=== PATIENT | male | born 1955 | race Caucasian/White ===

== ENCOUNTER 2016-06-03 11:36 | Emergency (ER) | payer BC, OTHER ==
[~2016-06-03] VITALS: Ht 175.3 cm; Wt 115.5 kg
[2016-06-03 11:45] VITALS: Ht 175.3 cm; Wt 115.5 kg
[2016-06-03] MEDS ORDERED: KETOROLAC 30 MG INJ IM STA (14:16)
[2016-06-03] MEDS ORDERED: IBUP400T22 PO (14:28)
--- NOTE | 2016-06-03 15:13 | ERD ---
ER Documentation Chief Complaint Date/Time DATE: 06/03/16 TIME: 15:10 Chief Complaint LEFT LEG PAIN 03/06 X 3DAYS HPI 60-year-old male with a past medical history of diabetes, hypertension presents the ED complaining of left leg pain that started 3 days ago. States that he had one episode a couple of months ago and has been applying patches which slightly relieved his symptoms. States that laying down and sitting makes the pain worse. States that the pain derives from his left side of the buttocks and radiates down his leg. Denies any saddle anesthesia, urine or bowel incontinence, abdominal pain, nausea, vomiting, dysuria, scrotal pain, urgency, frequency. Denies any calf pain. Denies any recent traveling. Denies any shortness of breath, chest pain, pleuritic chest pain, dyspnea on exertion, loss of sensation, loss of range of motion. ROS All systems reviewed and are negative except as per history of present illness. Medications Home Meds Active Scripts Ibuprofen* (Motrin*) 400 Mg Tab, 400 MG PO Q6, #30 TAB Prov:GREGORY URENA PA-C 06/03/16 PMhx/Soc History of Surgery: No Anesthesia Reaction: No Hx Neurological Disorder: No Hx Respiratory Disorders: No Hx Cardiac Disorders: Yes (HTN) Hx Psychiatric Problems: No Hx Miscellaneous Medical Probl: Yes (DM) Hx Alcohol Use: Yes (SOCIALLY) Hx Substance Use: No Hx Tobacco Use: Yes Smoking Status: Former smoker Physical Exam Vitals Vital Signs Date Time Temp Pulse Resp B/P Pulse Ox O2 Delivery O2 Flow Rate FiO2 06/03/16 11:45 98.4 83 18 149/91 98 Physical Exam Const: [id number], well-nourished. In no acute distress. Head: Atraumatic, normocephalic Eyes: Normal Conjunctiva without injection. No purulent discharge. ENT: Normal external ear, nose. Moist oropharynx without tonsillar exudates. Non -erythematous pharynx. Uvula midline. No drooling. No trismus. Neck: No cervical midline tenderness. Full range of motion. No meningismus. No cervical lymphadenopathy. No JVD. Resp: Clear to auscultation bilaterally. No wheezing, rhonchi, rales, or crackles. No accessory muscle use. No retractions. Cardio: Regular rate and rhythm. No murmurs, rubs or gallops. Abd: Soft, nontender, non distended. Normal bowel sounds. No palpable masses. No rebound tenderness. No guarding. Negative McBurney's point. Negative psoas sign. Negative obturator sign. Skin: No petechiae or rashes Back: No midline tenderness. Full range of motion noted. Positive straight leg test noted. No CVA tenderness. Ext: No cyanosis, or edema. Neur: Awake and alert. Normal gait. Normal coordination. Psych: Normal Mood and Affect Results 24 hrs Current Medications Medications (Trade) Dose Ordered Sig/Dwight Route PRN Reason Start Time Stop Time Status Last Admin Dose Admin Ketorolac Tromethamine (Toradol) 30 mg ONCE STAT IM 06/03/16 14:16 06/03/16 14:21 DC 06/03/16 14:34 Procedures/MDM This is a 60-year-old male with a past medical history of hypertension, diabetes presents to the ED complaining of left leg pain that started 3 days ago. Patient is afebrile nontoxic appearing. Patient has normal vital signs. Based on patient's clinical exam, patient had a positive straight leg test noted. Patient likely has possible sciatica of the left leg. Patient did not have any bony tenderness. Patient was treated here in the ED with 30 mg IM Toradol with improvement of his pain. No indication for radiologic studies at this time since patient does not have any bony tenderness. Patient is ambulating here in the ED without difficulty. Denies saddle anesthesia, numbness or tingling, urine or bowel incontinence, weakness. Low suspicion for cauda equina syndrome, cord compression, nephrolithiasis, aortic aneurysm, aortic dissection, epidural abscess, spinal hematoma, malignancy, pyelonephritis , degenerative disc disease, spinal stenosis, or other emergent conditions. Patient's extremity symptoms have stabilized while they have been evaluated in the department and are appropriate for outpatient follow up. No evidence of fractures, dislocations, compartment syndrome, neurologic injury, vascular injury, open joint, open fracture, tendon laceration, septic arthritis, osteomyelitis, DVT, foreign body, or other emergent conditions. Discharge medications: Ibuprofen Follow up with primary care physician in 1-2 days. Instructed patient to return to the ED sooner for any worsening symptoms. Patient's questions were answered. Patient understood and agreed with discharge plan. Patient discharged stable. Departure Diagnosis: Primary Impression: Sciatic leg pain Condition: Stable Patient Instructions: Understanding Sciatica, Back Pain W/ Sciatica Referrals: [facility] YOU HAVE RECEIVED A MEDICAL SCREENING EXAM AND THE RESULTS INDICATE THAT YOU DO NOT HAVE A CONDITION THAT REQUIRES URGENT TREATMENT IN THE EMERGENCY DEPARTMENT. FURTHER EVALUATION AND TREATMENT OF YOUR CONDITION CAN WAIT UNTIL YOU ARE SEEN IN YOUR DOCTORS OFFICE WITHIN THE NEXT 1-2 DAYS. IT IS YOUR RESPONSIBILITY TO MAKE AN APPOINTMENT FOR FOLOW-UP CARE. IF YOU HAVE A PRIMARY DOCTOR --you should call your primary doctor and schedule an appointment IF YOU DO NOT HAVE A PRIMARY DOCTOR YOU CAN CALL OUR PHYSICIAN REFERRAL HOTLINE AT IF YOU CAN NOT AFFORD TO SEE A PHYSICIAN YOU CAN CHOSE FROM THE FOLLOWING [facility] [address] [facility] [address] [facility] [facility] [address] [facility] [address] [facility] [address] [facility]. [facility] [address] [facility]. [facility] YOU HAVE RECEIVED A MEDICAL SCREENING EXAM AND THE RESULTS INDICATE THAT YOU DO NOT HAVE A CONDITION THAT REQUIRES URGENT TREATMENT IN THE EMERGENCY DEPARTMENT. FURTHER EVALUATION AND TREATMENT OF YOUR CONDITION CAN WAIT UNTIL YOU ARE SEEN IN YOUR DOCTORS OFFICE WITHIN THE NEXT 1-2 DAYS. IT IS YOUR RESPONSIBILITY TO MAKE AN APPOINTMENT FOR FOLOW-UP CARE. IF YOU HAVE A PRIMARY DOCTOR --you should call your primary doctor and schedule and appointment IF YOU DO NOT HAVE A PRIMARY DOCTOR YOU CAN CALL OUR PHYSICIAN REFERRAL HOTLINE AT . IF YOU CAN NOT AFFORD TO SEE A PHYSICIAN YOU CAN CHOSE FROM THE FOLLOWING [facility] INSTITUTIONS: [facility] [address] [place] [address] [facility] [address] [place] [address] [facility] + [facility] [address] [place] [address] [facility] URGENT C[facility]/SPECIALTIES Additional Instructions: FOLLOW UP WITH YOUR PRIMARY CARE PHYSICIAN TOMORROW. Return to this facility if you are not improving as expected. GREGORY URENA PA-C Jun 03, 2016 15:13
== END 2016-06-03 14:40 | disposition home or self-care (01) ==
LOC: FTE 11:36
DX: M54.32 Sciatica, left side (principal); I10 Essential (primary) hypertension; E11.9 Type 2 diabetes mellitus without complications; Z87.891 Personal history of nicotine dependence
CPT/HCPCS: 96372; 99284; J1885

== ENCOUNTER 2016-11-22 07:35 | Emergency (ER) | payer OTHER ==
[~2016-11-22] VITALS: Wt 122.5 kg
[~2016-11-22 07:35] MED LIST: IBUP400T22 PO
[2016-11-22 08:25] LABS: ADD SCAN DIFF NO
[2016-11-22 08:34] LABS: BASOPHILS % 0.7 % (0.0-2.0); EOSINOPHILS # 0.1 10^3/ul (0.0-0.5); EOSINOPHILS % 2.2 % (0.0-7.0); HEMATOCRIT 40.2 % (42.0-52.0); HEMOGLOBIN 13.1 g/dl (14.0-18.0); LYMPHOCYTES # 1.6 10^3/ul (0.8-2.9); LYMPHOCYTES % 26.8 % (15.0-51.0); MEAN CORPUSCULAR HEMOGLOBIN 27.5 pg (29.0-33.0); MEAN CORPUSCULAR HGB CONC 32.6 g/dl (32.0-37.0); MEAN CORPUSCULAR VOLUME 84.5 fl (82.0-101.0); MONOCYTE # 0.5 10^3/ul (0.3-0.9); NEUTROPHIL # 3.6 10^3/ul (1.6-7.5); PLATELET COUNT 179 10^3/UL (140-415); RED BLOOD COUNT 4.76 10^6/ul (4.70-6.10); RED CELL DISTRIBUTION WIDTH 14.6 % (11.5-14.5); WHITE BLOOD COUNT 5.9 10^3/ul (4.8-10.8)
[2016-11-22 08:40] LABS: ADD UMIC YES; UR ASCORBIC ACID NEGATIVE (NEGATIVE); UR BILIRUBIN (Dip) NEGATIVE (NEGATIVE); UR BLOOD (Dip) NEGATIVE (NEGATIVE); UR CLARITY CLEAR (CLEAR); UR COLOR YELLOW (YELLOW); UR GLUCOSE (Dip) NEGATIVE (NEGATIVE); UR KETONES (Dip) NEGATIVE (NEGATIVE); UR LEUKOCYTE ESTERASE (Dip) TRACE Leu/ul (NEGATIVE); UR NITRITE (Dip) NEGATIVE (NEGATIVE); UR RBC 1 /HPF (0-5); UR SPECIFIC GRAVITY (Dip) 1.011 (1.003-1.030); UR TOTAL PROTEIN (Dip) NEGATIVE (NEGATIVE); UR UROBILINOGEN (Dip) NEGATIVE (NEGATIVE)
[2016-11-22 08:50] LABS: ALBUMIN 4.5 g/dl (3.3-4.9); ALBUMIN/GLOBULIN RATIO 1.5; BILIRUBIN,INDIRECT 0.6 mg/dl (0-1.1); BILIRUBIN,TOTAL 0.6 mg/dl (0.2-1.3); CALCIUM 9.1 mg/dl (8.4-10.2); CREATININE 1.02 mg/dl (0.61-1.24); POTASSIUM 3.2 mmol/L (3.5-5.1); TOTAL PROTEIN 7.5 g/dl (6.1-8.1)
--- NOTE | 2016-11-22 08:55 | RADRPT ---
PROCEDURE: CT Brain without contrast. CLINICAL INDICATION: left facial droop TECHNIQUE: CT scan of the brain was performed on a multidetector high-resolution CT scan. Axial im aging was obtained of the brain without contrast administration. Coronal and sagittal reformatted i mages were obtained from the axial source images. Standard CT scan of the head without contrast prot ocols were performed. The total exam CTDI equals 43.95 mGy and the total exam DLP equals 720.23 mGy-cm. One or more of the following dose reduction techniques were used: - Automated exposure control. - Adjustment of the mA and/or kV according to patient size. Use of iterative reconstruction technique. COMPARISON: None. FINDINGS: The ventricular system and peripheral CSF spaces are unremarkable. Negative for intracranial masses hemorrhages or midline shift. Milton-white matter junction is unremarkable. The paranasal sinuses v isualized are unremarkable. The mastoids are unremarkable. The bones and calvarium are intact. IMPRESSION: Negative CT scan of the head without contrast. RPTAT:AAJJ Physician Silvino Date Time Electronically viewed and signed by Physician Silvino on 11/22/2016 08:54 BM/
[2016-11-22] MEDS ORDERED: POTASSIUM CHLORIDE (SR) 20 MEQ TAB PO STA (08:56)
--- NOTE | 2016-11-22 09:03 | RADRPT ---
PROCEDURE: XR Chest. CLINICAL INDICATION: Abdominal pain. TECHNIQUE: Single frontal portable chest was obtained. COMPARISON: None. FINDINGS: The cardiac silhouette is mildly enlarged. Pulmonary vasculature is upper limit normal. There is b ibasilar subsegmental atelectasis. No confluent airspace process is seen. The costophrenic angles are well defined. IMPRESSION: 1. Borderline cardiomegaly. 2. Bibasilar subsegmental atelectasis. 3. No confluent airspace process identified. RPTAT: AACC Physician Celsa Date Time Electronically viewed and signed by Physician Celsa on 11/22/2016 09:03 /
--- NOTE | 2016-11-22 09:09 | ERD ---
ER Documentation Chief Complaint Date/Time DATE: 11/22/16 TIME: 09:05 Chief Complaint l. sided facial numbness with droop noticed while brushing teeth at 0630 HPI This is a 61-year-old male who presents to the emergency room for evaluation of left-sided facial weakness and numbness that the patient noticed this morning when he woke up and started brushing his teeth around 630. The patient denies any numbness or tingling or weakness anywhere else in his body, and came to the emergency room for further evaluation. The patient denies having symptoms like this in the past and states that he is not having any blurred vision or headaches associated with this. ROS All systems reviewed and are negative except as per history of present illness. Medications Home Meds Active Scripts Ibuprofen* (Motrin*) 400 Mg Tab, 400 MG PO Q6, #30 TAB Prov:GREGORY URENA PA-C 06/03/16 PMhx/Soc History of Surgery: No Anesthesia Reaction: No Hx Neurological Disorder: No Hx Respiratory Disorders: No Hx Cardiac Disorders: Yes (HTN) Hx Psychiatric Problems: No Hx Miscellaneous Medical Probl: Yes (DM) Hx Alcohol Use: Yes (SOCIALLY) Hx Substance Use: No Hx Tobacco Use: Yes Smoking Status: Former smoker Physical Exam Vitals Vital Signs Date Time Temp Pulse Resp B/P Pulse Ox O2 Delivery O2 Flow Rate FiO2 11/22/16 08:01 97.6 66 18 126/73 97 Room Air 11/22/16 07:40 97.6 72 20 130/71 95 Physical Exam INITIAL VITAL SIGNS: Reviewed by me GENERAL: The patient is well developed and appropriate for usual state of health in no apparent distress HEENT: Pupils equal, round, and reactive to light. EOMI. There is no scleral icterus. NECK: C-spine is soft and supple, there is no meningismus. There is no cervical lymphadenopathy. LUNGS: Clear to auscultation bilaterally. There are no rales, wheezes or rhonchi. HEART: Regular rate and rhythm, no murmurs, clicks, rubs or gallops. ABDOMEN: Soft, non-tender, non-distended. There are bowel sounds in all four quadrants. No rebound or guarding. EXTREMITIES: There is no peripheral cyanosis or edema. No focal swelling or erythema. NEUROLOGICAL: Left-sided facial droop, inability to lift left eyebrow, the patient moves all four extremities with 5/5 strength. Oriented to person place and time SKIN: There is no apparent rash or petechiae. HEME/LYMPHATIC: There is no evidence of excessive bruising or lymphedema. PSYCHIATRIC: The patient does not appear anxious or depressed. Result Diagram: 11/22/16 0823 11/22/16 0823 Results 24 hrs Laboratory Tests Test 11/22/16 08:23 11/22/16 08:25 White Blood Count 5.910^3/ul Red Blood Count 4.7610^6/ul Hemoglobin 13.1g/dl Hematocrit 40.2% Mean Corpuscular Volume 84.5fl Mean Corpuscular Hemoglobin 27.5pg Mean Corpuscular Hemoglobin Concent 32.6g/dl Red Cell Distribution Width 14.6% Platelet Count 51794^3/UL Mean Platelet Volume 12.0fl Neutrophils % 62.0% Lymphocytes % 26.8% Monocytes % 8.0% Eosinophils % 2.2% Basophils % 0.7% Nucleated Red Blood Cells % 0.0/100WBC Neutrophils # 3.610^3/ul Lymphocytes # 1.610^3/ul Monocytes # 0.510^3/ul Eosinophils # 0.110^3/ul Basophils # 0.010^3/ul Nucleated Red Blood Cells # 0.010^3/ul Sodium Level 148mmol/L Potassium Level 3.2mmol/L Chloride Level 103mmol/L Carbon Dioxide Level 32mmol/L Anion Gap 16 Blood Urea Nitrogen 14mg/dl Creatinine 1.02mg/dl Glucose Level 136mg/dl Calcium Level 9.1mg/dl Total Bilirubin 0.6mg/dl Direct Bilirubin 0.00mg/dl Indirect Bilirubin 0.6mg/dl Aspartate Amino Transf (AST/SGOT) 31IU/L Alanine Aminotransferase (ALT/SGPT) 51IU/L Alkaline Phosphatase 58IU/L Total Protein 7.5g/dl Albumin 4.5g/dl Globulin 3.00g/dl Albumin/Globulin Ratio 1.50 Lipase 80U/L Urine Color YELLOW Urine Clarity CLEAR Urine pH 7.0 Urine Specific [place] 1.011 Urine Ketones NEGATIVEmg/dL Urine Nitrite NEGATIVEmg/dL Urine Bilirubin NEGATIVEmg/dL Urine Urobilinogen NEGATIVEmg/dL Urine Leukocyte Esterase TRACELeu/ul Urine Microscopic RBC 1/HPF Urine Microscopic WBC 1/HPF Urine Hemoglobin NEGATIVEmg/dL Urine Glucose NEGATIVEmg/dL Urine Total Protein NEGATIVEmg/dl Current Medications Medications (Trade) Dose Ordered Sig/Dwight Route PRN Reason Start Time Stop Time Status Last Admin Dose Admin Potassium Chloride (Klor-Con 20) 40 meq ONCE STAT PO 11/22/16 08:56 11/22/16 08:57 UNV Acyclovir (Zovirax) 800 mg ONCE ONCE PO 11/22/16 09:30 11/22/16 09:31 Prednisone (Prednisone) 40 mg ONCE ONCE PO 11/22/16 09:30 11/22/16 09:31 Procedures/MDM CT brain without: Negative CT scan of the head without contrast. EKG: Rate/Rhythm: [Normal Sinus Rhythm] QRS, ST, T-waves: [No changes consistent w/ acute ischemia] Impression: [No evidence of ischemia or arrhythmia] Chest X-ray 1V Interpreted by me: Soft Tissue: No acute abnormalities Bones: No acute abnormalities Mediastinum/Cardiac Silhouette/Lungs: [No acute abnormalities] This 61-year-old male presents to the emergency room for evaluation of left sided facial weakness and facial droop. On my examination the patient did have left-sided facial droop however he had no other focal neurological deficits. The patient was unable to raise his left eyebrow. This patient had a CT of the brain which was negative. I do feel that the patient he is suffering from Patiño 's palsy. Patient was found to have hypokalemia with potassium 3.2. He was given 40 mg once a potassium by mouth. The patient was given acyclovir and prednisone in the emergency room. He will be discharged home at this time with a prescription for valacyclovir, prednisone, and eye lubrication with instructions to follow-up with his primary care physician or return to the emergency room for further evaluation. Smoking Cessation Therapy: Pt. was lectured for greater than 3 minutes on the health risks of continued smoking and the benefits of cessation. Departure Diagnosis: Primary Impression: Left-sided Patiño's palsy Additional Impressions: Hypokalemia Normocytic anemia Tobacco abuse Tobacco abuse counseling Condition: Stable KALIE PALENCIA DO Nov 22, 2016 09:09
[2016-11-22] MEDS ORDERED: PRED20TA PO (09:10)
[2016-11-22] MEDS ORDERED: VALA10004 PO (09:10)
[2016-11-22] MEDS ORDERED: [UNRECOGNIZED DRUG - CODE] OP (09:11)
[2016-11-22] MEDS ORDERED: [UNRECOGNIZED DRUG - CODE] PO (09:23)
[2016-11-22] MEDS ORDERED: ACYCLOVIR 800 MG TAB PO ONE (09:30)
[2016-11-22] MEDS ORDERED: predniSONE 20 MG TAB PO ONE (09:30)
[2016-11-22 09:59] VITALS: BP 151/88; PULSE 72; RESP 16; TEMP 97.6
== END 2016-11-22 10:00 | disposition home or self-care (01) ==
LOC: E/R 07:35
DX: G51.0 Bell's palsy (principal); E87.6 Hypokalemia; D64.9 Anemia, unspecified; F17.210 Nicotine dependence, cigarettes, uncomplicated; I10 Essential (primary) hypertension; E11.9 Type 2 diabetes mellitus without complications; Z71.6 Tobacco abuse counseling
CPT/HCPCS: 36415; 70450; 71010; 80053; 81001; 83690; 85025; 93005; 99285; J7512

== ENCOUNTER 2017-01-29 17:02 | Inpatient (IN) | payer OTHER ==
[~2017-01-29] VITALS: Ht 172.7 cm; Wt 105.0 kg
[~2017-01-29 17:02] MED LIST changes: -IBUP400T22 PO; +PRED20TA PO; +VALA10004 PO; +[UNRECOGNIZED DRUG - CODE] OP; +[UNRECOGNIZED DRUG - CODE] PO
[2017-01-29 17:05] VITALS: Ht 172.7 cm; Wt 105.0 kg
[2017-01-29 19:40] VITALS: TEMP 98.4
[2017-01-29] MEDS ORDERED: SODIUM CHLORIDE 0.9% 1L BAG IV* STA (19:51)
[2017-01-29] MEDS ORDERED: ACETAMINOPHEN 325 MG TAB PO STA (19:51)
[2017-01-29] MEDS ORDERED: VANCOMYCIN 1 GM (PMX) 250 ML IVPB ONE (20:00)
[2017-01-29] MEDS ORDERED: PIPER-TAZO 3.375 GM IV (PMX) 100 ML IVPB ONE (20:00)
[2017-01-29 20:14] LABS: BASOPHILS % 0.3 % (0.0-2.0); EOSINOPHILS # 0.1 10^3/ul (0.0-0.5); EOSINOPHILS % 1.3 % (0.0-7.0); HEMATOCRIT 37.9 % (42.0-52.0); LYMPHOCYTES % 19.3 % (15.0-51.0); MEAN CORPUSCULAR HEMOGLOBIN 28.7 pg (29.0-33.0); MEAN CORPUSCULAR HGB CONC 34.3 g/dl (32.0-37.0); MEAN CORPUSCULAR VOLUME 83.7 fl (82.0-101.0); MONOCYTE # 0.8 10^3/ul (0.3-0.9); MONOCYTES % 7.8 % (0.0-11.0); NEUTROPHILS % 70.8 % (39.0-77.0); PLATELET COUNT 193 10^3/UL (140-415); RED BLOOD COUNT 4.53 10^6/ul (4.70-6.10); RED CELL DISTRIBUTION WIDTH 14.7 % (11.5-14.5); WHITE BLOOD COUNT 10.1 10^3/ul (4.8-10.8)
[2017-01-29 20:31] LABS: INR 0.91; PROTIME 12.3 Sec (12.2-14.2)
[2017-01-29 20:32] LABS: PARTIAL THROMBOPLASTIN TIME 30.3 Sec (25.0-35.0)
[2017-01-29 20:34] LABS: ALBUMIN 3.9 g/dl (3.3-4.9); ALBUMIN/GLOBULIN RATIO 1.18; BILIRUBIN,INDIRECT 0.4 mg/dl (0-1.1); BILIRUBIN,TOTAL 0.4 mg/dl (0.2-1.3); CALCIUM 9.9 mg/dl (8.4-10.2); CREATININE 1.32 mg/dl (0.61-1.24); TOTAL PROTEIN 7.2 g/dl (6.1-8.1)
[2017-01-29 20:36] LABS: POTASSIUM 2.4 mmol/L (3.5-5.1)
[2017-01-29 20:46] LABS: TROPONIN-I 0.024 ng/ml (0.00-0.12)
[2017-01-29 20:53] LABS: ADD UMIC YES; UR ASCORBIC ACID NEGATIVE (NEGATIVE); UR BACTERIA FEW /HPF (NONE SEEN); UR BILIRUBIN (Dip) NEGATIVE (NEGATIVE); UR BLOOD (Dip) 1+ mg/dL (NEGATIVE); UR CLARITY SLIGHTLY CLOUDY (CLEAR); UR COLOR YELLOW (YELLOW); UR GLUCOSE (Dip) NEGATIVE (NEGATIVE); UR KETONES (Dip) NEGATIVE (NEGATIVE); UR LEUKOCYTE ESTERASE (Dip) NEGATIVE Leu/ul (NEGATIVE); UR NITRITE (Dip) NEGATIVE (NEGATIVE); UR RBC 1 /HPF (0-5); UR SPECIFIC GRAVITY (Dip) 1.014 (1.003-1.030); UR TOTAL PROTEIN (Dip) NEGATIVE (NEGATIVE); UR UROBILINOGEN (Dip) NEGATIVE (NEGATIVE)
[2017-01-29] MEDS ORDERED: ACETAMINOPHEN 325 MG TAB PO PRN (21:00)
[2017-01-29] MEDS ORDERED: SOD CHLORIDE 0.9% 1,000 ML IV ONE (21:00)
[2017-01-29] MEDS ORDERED: ONDANSETRON 4 MG INJ IV PRN (21:00)
--- NOTE | 2017-01-29 21:15 | RADRPT ---
PROCEDURE: Portable chest x-ray. CLINICAL INDICATION: 61 years of age, male. Chest pain. TECHNIQUE: Portable AP view of the chest. COMPARISON: None available. FINDINGS: Right paratracheal soft tissue prominence at the thoracic inlet is unchanged from prior exam and may be due to an enlarged thyroid gland or prominent vasculature. Cardiomediastinal contours are other cavazos normal. Lungs are clear. Negative for pleural effusion or pneumothorax. No acute bony abnormality. IMPRESSION: Right paratracheal soft tissue prominence is unchanged from prior exam and may be due to an enlarged thyroid gland or tortuous vessels. Recommend clinical evaluation of the thyroid. The patient may b enefit from non-urgent thyroid ultrasound. Negative for evidence of an acute chest process. RPTAT: HCTS Physician Regina Date Time Electronically viewed and signed by Physician Regina on 01/29/2017 21:15 /
--- NOTE | 2017-01-29 21:21 | ERA ---
ER Documentation Chief Complaint Date/Time DATE: 01/29/17 TIME: 21:10 Chief Complaint SQUAMOS CELL CARCINOMA WITH REMOVAL SUNDAY. NOW FEVER AND PAIN ROS All systems reviewed and are negative except as per history of present illness. Medications Home Meds Active Scripts Dextran/Hypromellose/Glycerin (Tears Naturale Forte Drops) 30 Ml Drops, 30 ML OP QID for 7 Days, BOTTLE Prov:CHEIKH PALENCIATUCKER JAMES 11/22/16 Prednisone* (Prednisone*) 20 Mg Tab, 60 MG PO DAILY for 4 Days, TAB Prov:KALIE PALENCIA DO 11/22/16 Valacyclovir HCl (Valtrex) 1,000 Mg Tablet, 1000 MG PO TID for 7 Days, TAB Prov:KALIE PALENCIA DO 11/22/16 Reported Medications Amlodipine-Atorvastatin (Amlodipine-Atorvastatin) 10-40 Mg Tablet, 1 TAB PO QHS , #90 11/22/16 Allergies Allergies: Coded Allergies: No Known Allergy (Unverified , 11/22/16) PMhx/Soc History of Surgery: No Anesthesia Reaction: No Hx Neurological Disorder: No Hx Respiratory Disorders: No Hx Cardiac Disorders: Yes (HTN) Hx Psychiatric Problems: No Hx Miscellaneous Medical Probl: Yes (DM, Patiño's Palsy, HTN, BPH) Hx Alcohol Use: Yes (SOCIALLY) Hx Substance Use: No Hx Tobacco Use: Yes (STOPPED 20 YEARS AGO) Smoking Status: Former smoker FmHx Family History: No diabetes Physical Exam Vitals Vital Signs Date Time Temp Pulse Resp B/P Pulse Ox O2 Delivery O2 Flow Rate FiO2 01/29/17 19:40 98.4 68 20 126/71 99 Room Air 2.0 Nasal Cannula 01/29/17 17:05 98.1 82 20 143/73 96 Physical Exam GENERAL: Well-developed, well-nourished, well-hydrated, in no apparent distress , looks nontoxic in appearance, febrile HEENT: Moist mucous membranes, pink conjunctiva, no cervical spine tenderness or step-off deformities, no goiter, no jaundice or icterus, extraocular movements intact without pain. No submandibular induration, and no pharyngeal erythema NEURO: Alert and oriented 3, cranial nerves II through XII intact bilaterally, pupils equal round reactive to light, no focal deficits or facial asymmetry, sensation intact distally Strength 5/5 in upper and lower extremities bilaterally CARDIAC: Regular rate and rhythm, no murmurs rubs or gallops LUNGS: Clear bilaterally no wheezing crackles or stridor ABDOMEN: Soft nontender, no guarding, no rigidity, no rebound, no psoas sign no obturator sign. Normoactive bowel sounds SKIN: Large zone of skin erythema and induration to the right lateral thigh evidence of recent surgical removal, no purulent discharge or drainage. EXTREMITIES: No clubbing cyanosis or edema, calves are bilaterally symmetrical, no Homans sign, no popliteal cord sign. Distal pulses equal and bilateral PSYCH: Normal affect without agitation or irritability Result Diagram: 01/29/17200401/29/172004 Results 24 hrs Laboratory Tests Test 01/29/17 20:00 01/29/17 20:05 Urine Color YELLOW Urine Clarity SLIGHTLY CLOUDY Urine pH 6.0 Urine Specific [place] 1.014 Urine Ketones NEGATIVEmg/dL Urine Nitrite NEGATIVEmg/dL Urine Bilirubin NEGATIVEmg/dL Urine Urobilinogen NEGATIVEmg/dL Urine Leukocyte Esterase NEGATIVELeu/ul Urine Microscopic RBC 1/HPF Urine Microscopic WBC 4/HPF Urine Bacteria FEW/HPF Urine Hemoglobin 1+mg/dL Urine Glucose NEGATIVEmg/dL Urine Total Protein NEGATIVEmg/dl White Blood Count 10.110^3/ul Red Blood Count 4.5310^6/ul Hemoglobin 13.0g/dl Hematocrit 37.9% Mean Corpuscular Volume 83.7fl Mean Corpuscular Hemoglobin 28.7pg Mean Corpuscular Hemoglobin Concent 34.3g/dl Red Cell Distribution Width 14.7% Platelet Count 37991^3/UL Mean Platelet Volume 12.0fl Neutrophils % 70.8% Lymphocytes % 19.3% Monocytes % 7.8% Eosinophils % 1.3% Basophils % 0.3% Nucleated Red Blood Cells % 0.0/100WBC Neutrophils # (Manual) 7.210^3/ul Lymphocytes # 2.010^3/ul Monocytes # 0.810^3/ul Eosinophils # 0.110^3/ul Basophils # 0.010^3/ul Nucleated Red Blood Cells # 0.010^3/ul Prothrombin Time 12.3Sec Prothrombin Time Ratio 1.0 INR International Normalized Ratio 0.91 Activated Partial Thromboplast Time 30.3Sec Sodium Level 141mmol/L Potassium Level 2.4mmol/L Chloride Level 96mmol/L Carbon Dioxide Level 35mmol/L Anion Gap 12 Blood Urea Nitrogen 27mg/dl Creatinine 1.32mg/dl Glucose Level 161mg/dl Lactic Acid Level 2.4mmol/L Calcium Level 9.9mg/dl Total Bilirubin 0.4mg/dl Direct Bilirubin 0.00mg/dl Indirect Bilirubin 0.4mg/dl Aspartate Amino Transf (AST/SGOT) 21IU/L Alanine Aminotransferase (ALT/SGPT) 37IU/L Alkaline Phosphatase 56IU/L Troponin I 0.024ng/ml Total Protein 7.2g/dl Albumin 3.9g/dl Globulin 3.30g/dl Albumin/Globulin Ratio 1.18 Lipase 98U/L Current Medications Medications (Trade) Dose Ordered Sig/Dwight Route PRN Reason Start Time Stop Time Status Last Admin Dose Admin Sodium Chloride (NS) 2,000 ml BOLUS OVER 2 HOURS STAT IV* 01/29/17 19:51 01/29/17 19:52 DC 01/29/17 20:15 Acetaminophen 650 mg 650 mg ONCE STAT PO 01/29/17 19:51 01/29/17 19:52 DC 01/29/17 20:14 Vancomycin HCl 250 ml @ 125 mls/hr ONCE ONCE IVPB 01/29/17 20:00 01/29/17 21:59 01/29/17 21:03 Piperacillin Sod/ Tazobactam Sod (Zosyn 3.375gm/ 100 ml (Pmx)) 100 ml @ 200 mls/hr ONCE ONCE IVPB 01/29/17 20:00 01/29/17 20:29 DC 01/29/17 20:14 Ondansetron HCl (Zofran Inj) 4 mg BRIDGE ORDER PRN IV NAUSEA AND/OR VOMITING 01/29/17 21:00 01/30/17 20:59 Acetaminophen 650 mg 650 mg ER BRIDGE PRN PO MILD PAIN/FEVER 01/29/17 21:00 01/30/17 20:59 Potassium Phosphate 40 meq/ Sodium Chloride 259.0909 ml @ 64.773 m... ONCE ONCE IVPB 01/29/17 21:30 01/30/17 01:29 Sodium Chloride (NS) 1,000 ml @ 1,000 mls/hr Q1H ONCE IV 01/29/17 21:00 01/29/17 21:59 Procedures/MDM IV line was established patient was placed on fish grader rhythm strip revealed a sinus rhythm at about 70 bpm with upright P and T waves. Patient was afebrile. I do not suspect sepsis. Although blood and urine cultures have been ordered results are pending I will follow-up. I administered 2 L normal saline intravenously, Zosyn 3.375 g IV and vancomycin 1 g IV.Patient also received acetaminophen 650 mg p.o. EKG performed, read by me revealed a normal sinus rhythm at 65 bpm, normal axis on the right ventricular conduction delay at 100 ms, no concerning ST elevations or depressions noted. One AP view of the chest performed, read by me reveals no acute infiltrates, normal mediastinum, sharp costophrenic and cardiac borders, no air under the diaphragm. Otherwise unremarkable chest x-ray. CBC was unremarkable, electrolytes revealed dehydration with a BUN/creatinine of 27/1.3 and hypokalemia 2.4.Liver function tests are unremarkable, troponin negative, urine analysis unremarkable. I supplemented the patient with intravenous potassium for acute hypokalemia. I do not suspect sepsis although patient will be admitted for IV antibiotics given the recent thigh cellulitis which failed outpatient antibiotic therapy. Departure Diagnosis: Primary Impression: Squamous cell carcinoma Additional Impressions: Cellulitis Qualified Code: L03.115 - Cellulitis of right lower extremity Hypokalemia Dehydration Condition: ABDOUL Couch MD Jan 29, 2017 21:20
[2017-01-29] MEDS ORDERED: POTASSIUM PHOSPHATE 40 MEQ in SOD CHLORIDE 0.9% 250 ML IVPB ONE (21:30)
[2017-01-29 22:20] VITALS: BP 146/70; RESP 18
[2017-01-29] MEDS ORDERED: [UNRECOGNIZED DRUG - OTHER] (22:25)
[2017-01-29] MEDS ORDERED: METF1000 PO (22:26)
[2017-01-29] MEDS ORDERED: LOSA100T7 PO (22:27)
[2017-01-29] MEDS ORDERED: METO-336 PO (22:28)
[2017-01-29] MEDS ORDERED: HYDR25TA6 PO (22:29)
[2017-01-29] MEDS ORDERED: TAMS0.4C2 PO (22:31)
[2017-01-30] MEDS ORDERED: [UNRECOGNIZED DRUG - OTHER] SCH (00:30)
[2017-01-30] MEDS ORDERED: VANCOMYCIN IV PER PHARMACY XX SCH (00:30)
[2017-01-30] MEDS ORDERED: TAMSULOSIN (SR) 0.4 MG CAP PO ONE (00:36)
[2017-01-30] MEDS: TAMSULOSIN (SR) 0.4 MG CAP PO SCH ×2 (00:39→20:37)
[2017-01-30] MEDS: metFORMIN 500 MG TAB PO SCH ×3 (00:39→17:24)
[2017-01-30] MEDS ORDERED: VANCOMYCIN 2 GM in SOD CHLORIDE 0.9% 500 ML IVPB SCH (02:00)
[2017-01-30 02:04] VITALS: BP 129/60; RESP 18
[2017-01-30] MEDS ORDERED: POTASSIUM CHLORIDE 50 ML IVPB PRN (05:30)
[2017-01-30] MEDS: PIPER-TAZO 3.375 GM IV (PMX) 100 ML IVPB SCH ×3 (06:10→22:50)
[2017-01-30] MEDS: PANTOPRAZOLE (EC) 40 MG TAB PO SCH (06:10)
[2017-01-30 06:37] LABS: BASOPHILS % 0.4 % (0.0-2.0); EOSINOPHILS # 0.1 10^3/ul (0.0-0.5); EOSINOPHILS % 1.5 % (0.0-7.0); HEMATOCRIT 39.3 % (42.0-52.0); HEMOGLOBIN 13.1 g/dl (14.0-18.0); LYMPHOCYTES # 1.5 10^3/ul (0.8-2.9); LYMPHOCYTES % 17.5 % (15.0-51.0); MEAN CORPUSCULAR HEMOGLOBIN 28.2 pg (29.0-33.0); MEAN CORPUSCULAR HGB CONC 33.3 g/dl (32.0-37.0); MEAN CORPUSCULAR VOLUME 84.5 fl (82.0-101.0); MEAN PLATELET VOLUME 12.6 fl (7.4-10.4); MONOCYTE # 0.7 10^3/ul (0.3-0.9); NEUTROPHILS % 72.4 % (39.0-77.0); PLATELET COUNT 178 10^3/UL (140-415); RED BLOOD COUNT 4.65 10^6/ul (4.70-6.10); RED CELL DISTRIBUTION WIDTH 14.7 % (11.5-14.5); WHITE BLOOD COUNT 8.4 10^3/ul (4.8-10.8)
[2017-01-30 07:13] LABS: CALCIUM 9.3 mg/dl (8.4-10.2); CREATININE 1.17 mg/dl (0.61-1.24)
[2017-01-30 07:21] LABS: POTASSIUM 2.4 mmol/L (3.5-5.1)
[2017-01-30 08:00] VITALS: BP 133/78; RESP 20
[2017-01-30] MEDS: LOSARTAN 50 MG TAB PO SCH (08:39)
[2017-01-30] MEDS ORDERED: HYDROCHLOROTHIAZIDE 25 MG TAB PO SCH (09:00)
[2017-01-30] MEDS: METOPROLOL (XL) 100 MG TAB PO SCH (09:10)
[2017-01-30] MEDS: POTASSIUM CHLORIDE 50 ML IVPB SCH ×3 (09:11→18:22)
[2017-01-30] MEDS ORDERED: GLUCOSE GEL 15 GRAM TUBE BUCCAL PRN (11:00)
[2017-01-30] MEDS ORDERED: DEXTROSE 50% 50 ML SYRINGE IV PRN ×2 (11:00)
[2017-01-30] MEDS ORDERED: GLUCAGON 1 MG INJ IM PRN (11:00)
[2017-01-30] MEDS ORDERED: GLUCOSE GEL 15 GRAM TUBE PO PRN ×2 (11:00)
[2017-01-30] MEDS: INSULIN ASPART [NOVOLOG] 3 ML PEN SC SCH ×3 (11:57→20:39)
--- NOTE | 2017-01-30 11:57 | HP ---
Date/Time of Note Date/Time of Note DATE: 01/30/17 TIME: 11:14 Assessment/Plan VTE Prophylaxis VTE Prophylaxis Intervention: SCD's Lines/Catheters IV [facility]ter Type (from [facility] Saline Lock Assessment/Plan Assessment/Plan 61-year-old male with: 1. Right thigh postop wound infection, patient on Zosyn and vancomycin, agree with current regimen, given large area of induration and stitches still in place , CAT scan of the right thigh pending to rule out an abscess. Patient did describe serosanguineous versus purulent discharge Wound Care consult pending, wound Culture Continue current IV antibiotics 2. Squamous cells carcinoma right thigh lesion, status post excision with a 5 cm margin according to patient. Follow-up with dermatology as an outpatient post discharge 3. Hypertension: Outpatient medications 4. Diabetes mellitus: Hemoglobin A1c, continue metformin, sliding scale insulin. 5. Acute kidney injury, resolving: IV fluids, replete potassium and repeat BMP at 2 PM 6. BPH: Continue Flomax Prophylaxis: Protonix for GI prophylaxis, Lovenox for DVT prophylaxis Disposition: IV antibiotics, CT of the right thigh rule out abscess, IV fluids, repeat BMP and potassium level at 2 PM for further repletion as needed. HPI/ROS Admit Date/Time Admit Date/Time Jan 29, 2017 at 20:34 Hx of Present Illness Chief complaint: Right thigh postop infection History of presenting illness: This is a 61-year-old male with history of hypertension, diabetes mellitus, recent excision of right thigh squamous cell carcinomatous lesion approximately 6 days ago who presented with complaints of fevers, chills, discharge from the postop wound. Patient reports that he had an excisional biopsy or excision of right thigh squamous cell carcinomatous lesion by a buyer planner 6 days ago, 48 hours postprocedure he started having worsening pain at the surgical site. By the third day he noticed a mixture of pus and blood draining from the surgical wound , stitches are still in place, he also noted increasing erythema. He called his primary care physician was started on Keflex. He took 3 doses of the Keflex and by yesterday morning he was having fevers and chills at home, therefore he came to the hospital. He is doing better this morning, no fevers or chills. White blood cell count is within normal. Surgical wound is erythematous with stitches in place and also induration noted. There is no charges that I am seeing but the patient again reports a mixture of purulent and serosanguineous discharge 2 days ago. He has been started on Zosyn and vancomycin. Wound care has been ordered. Wound culture pending, CAT scan of the right thigh also is pending to rule out abscess. Surgical consult as needed. ROS Constitutional: chills, febrile Respiratory: no complaints Cardiovascular: no complaints Gastrointestinal: no complaints Genitourinary: no complaints Musculoskeletal: no complaints Skin: erythema (Right thigh post surgical site, at site of excision, stitches still in place.) Neurologic: no complaints PMH/Family/Social Past Medical History Diabetes mellitus Hypertension Benign prostatic hypertrophy Squamous cell carcinoma status post excision of right thigh lesion Medical History: diabetes, hypertension Past Surgical History Status post excision of right thigh squamous cell carcinoma lesion approximately 1 week ago, on 01/24, outpatient by dermatology Family History Significant Family History: no pertinent family hx Social History Alcohol Use: occasionally Smoking Status: Former smoker (quit 20 years ago) Drug Use: none Exam/Review of Systems Vital Signs Vitals Vital Signs Date Time Temp Pulse Resp B/P Pulse Ox O2 Delivery O2 Flow Rate FiO2 01/30/17 08:00 97.7 68 20 133/78 96 01/29/17 21:40 Room Air Nasal Cannula 01/29/17 19:40 2.0 Intake and Output 01/29/17 01/29/17 01/30/17 15:00 23:00 07:00 Intake Total 1699 ml Balance 1699 ml Exam Constitutional: alert, oriented, well developed Respiratory: clear to auscultation, normal air movement Cardiovascular: nl pulses, regular rate and rhythm Gastrointestinal: non-tender, soft Musculoskeletal: swelling (Induration, erythema at postop wound, stitches present, tenderness to palpation) Extremities: normal pulses, other (No edema, clubbing or cyanosis) 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, nl mental status, nl speech, nl strength Skin: other (Infected postop wound right thigh posterior) Labs Result Diagram: 01/30/1751301/30/17513 Medications Medications Home medications: Refer to medication reconciliation on admission Current Medications Losartan Potassium (Cozaar) 100 mg DAILY PO Last administered on 01/30/17t 08:39 ; Admin Dose 100 MG; Start 01/30/17 at 09:00 Metoprolol Succinate (Toprol Xl) 100 mg DAILY PO Last administered on 01/30/17 09:10; Admin Dose 100 MG; Start 01/30/17 at 09:00 Tamsulosin HCl (Flomax) 0.4 mg HS PO Last administered on 01/30/17 00:39; Admin Dose 0.4 MG; Start 01/30/17 at 21:00 Amlodipine Besylate (Norvasc) 10 mg QHS PO ; Start 01/30/17 at 21:00 Miscellaneous Information 150 mg 150 mg QFridays .ROUTE ; Start 01/30/17 at 00:30 ; Status UNV Piperacillin Sod/ Tazobactam Sod (Zosyn 3.375gm/ 100 ml (Pmx)) 100 ml @ 200 mls /hr Q8 IVPB Last administered on 01/30/17 06:10; Admin Dose 200 MLS/HR; Start 01/30/17 at 06:00 Atorvastatin Calcium (Lipitor) 40 mg QHS PO ; Start 01/30/17 at 21:00 Pantoprazole 40 mg 40 mg DAILY@06 PO Last administered on 01/30/17 06:10; Admin Dose 40 MG; Start 01/30/17 at 06:00 Vancomycin HCl 2 gm/Sodium Chloride 500 ml @ 125 mls/hr Q24H IVPB ; Start at 04:00 Potassium Chloride (KCl 10 MEQ/50 ML SW) 50 ml @ 50 mls/hr Q1H IVPB Last administered on 01/30/17 10:47; Admin Dose 50 MLS/HR; Start 01/30/17 at 09:00; Stop 01/30/17 at 11:59 Diagnostic Test (Pha) (Accu-Chek) 1 ea 02 XX ; Start 01/31/17 at 02:00 Miscellaneous Information 1 ea NOTE XX ; Start 01/30/17 at 11:00 Glucose (Glutose) 15 gm Q15M PRN PO DECREASED GLUCOSE; Start 01/30/17 at 11:00 Glucose (Glutose) 22.5 gm Q15M PRN PO DECREASED GLUCOSE; Start 01/30/17 at 11:00 Dextrose (D50w Syringe) 25 ml Q15M PRN IV DECREASED GLUCOSE; Start 01/30/17 at 11:00 Dextrose (D50w Syringe) 50 ml Q15M PRN IV DECREASED GLUCOSE; Start 01/30/17 at 11:00 Glucagon (Glucagen) 1 mg Q15M PRN IM DECREASED GLUCOSE; Start 01/30/17 at 11:00 Glucose (Glutose) 15 gm Q15M PRN BUCCAL DECREASED GLUCOSE; Start 01/30/17 at 11: 00 Procedures Procedures PROCEDURE: Portable chest x-ray. CLINICAL INDICATION: 61 years of age, male. Chest pain. TECHNIQUE: Portable AP view of the chest. COMPARISON: None available. FINDINGS: Right paratracheal soft tissue prominence at the thoracic inlet is unchanged from prior exam and may be due to an enlarged thyroid gland or prominent vasculature. Cardiomediastinal contours are otherwise normal. Lungs are clear. Negative for pleural effusion or pneumothorax. No acute bony abnormality. IMPRESSION: Right paratracheal soft tissue prominence is unchanged from prior exam and may be due to an enlarged thyroid gland or tortuous vessels. Recommend clinical evaluation of the thyroid. The patient may benefit from non-urgent thyroid ultrasound. Negative for evidence of an acute chest process. ERICKSON QUEVEDO Jan 30, 2017 11:32
[2017-01-30] MEDS ORDERED: IODIXANOL LOCM 100 ML BTL ONE (12:35)
[2017-01-30] MEDS ORDERED: SOD CHLORIDE 0.9% 100 ML ONE (12:35)
[2017-01-30] MEDS: NS + KCL 20 MEQ 1,000 ML IV SCH ×2 (13:54→22:00)
[2017-01-30] MEDS: ENOXAPARIN 40 MG/0.4 ML SYG SC SCH (13:56)
[2017-01-30 14:00] VITALS: BP 153/80; RESP 18
[2017-01-30] MEDS ORDERED: MAGNESIUM SULFATE 3 GM in SOD CHLORIDE 0.9% 100 ML IVPB ONE (14:00)
--- NOTE | 2017-01-30 14:38 | RADRPT ---
PROCEDURE: CT of the right lower extremity CLINICAL INDICATION: Right lower extremity pain and swelling, posterior thigh wound, evaluate for abscess TECHNIQUE: Axial images through the right lower extremity with IV contrast. Coronal and sagittal reformats. 100 cc isoview 320 IV contrast was used. Images were interpreted at an independent PAC S workstation. CTDI 20.95 mGy DLP 1394.48 mGy-cm One or more of the following dose reduction techniques were used: Automated exposure control Adjustment of the mA and / or kV according to patient size Use of iterative reconstruction technique. COMPARISON: None available FINDINGS: There is a subcutaneous complex fluid collection within the posterolateral soft tissues of the right proximal thigh at the level of the greater trochanter (axial 71 ampules coronal 79 and sagittal 34) measuring 4.0 x 2.5 x 3.3 cm (mediolateral, anteroposterior, craniocaudal) with surrounding subcuta neous soft tissue swelling, skin thickening, and a small foci of soft tissue gas laterally. There is no evidence of acute fracture. There are mild degenerative changes of the right hip. There is no significant hip joint effusion. There are mild vascular calcifications and there are prostatic calcifications. There is no evidence of lymphadenopathy. There is a 3 cm chondroid lesion in the di stal femur that is probably a benign enchondroma. Limited assessment of the visualized vessels is ot herwise unremarkable. IMPRESSION: 1. Ovoid subcutaneous abscess and / or hematoma just below the skin at the posterolateral soft tissu es of the proximal thigh at the level of the greater trochanter measuring 4.0 x 2.5 x 3.3 cm. A smal l focus of soft tissue gas is seen along the lateral margin of the collection. 2. Surrounding subcutaneous soft tissue swelling, probably cellulitis. 3. No CT evidence of acute fracture or osteomyelitis. 4. Chondroid lesion in the distal femur measuring 3 cm in size, likely a benign enchondroma. RPTAT: UU .Agustin Lester MD, Date Time Electronically viewed and signed by .Agustin Lester MD, MD on 01/30/2017 14:37 .K/
[2017-01-30 15:15] LABS: CALCIUM 8.9 mg/dl (8.4-10.2); CREATININE 1.07 mg/dl (0.61-1.24)
[2017-01-30 15:24] LABS: POTASSIUM 2.5 mmol/L (3.5-5.1)
[2017-01-30] MEDS ORDERED: POTASSIUM CHLORIDE (SR) 20 MEQ TAB PO STA (15:28)
--- NOTE | 2017-01-30 16:55 | OPR ---
Date/Time of Note Date/Time of Note DATE: 01/30/17 TIME: 16:55 Operative Report Procedure Date: Jan 30, 2017 Preoperative Diagnosis Right buttock scca excision site cellulitis/?abscess Postoperative Diagnosis Right buttock squamous cell cancer excision site cellulitis and abscess. 8x5cm Operation Performed 1. Incision, drainage, and excisional debridement of right buttock surgical wound. 8x5cm Surgeon: PAWEL MOORE MD Anesthesia Type: other (local) Estimated Blood Loss: 0 - 10 ml's Transfusion Required: no Specimens culture Grafts/Implants packing temporary gauze Tubes/Drains no Complications: no Pt Condition Post Procedure: stable Disposition: other (own room) Indications per notes. r/b/a were fully reviewed with pt and he agrees to proceed. Procedure Description Patient was placed on his own bed. Area was prepped and draped in sterile fashion. previous sutures were removed sharply and the cavity was entered and pus was drained. Culture sent. Debris of skin subq, and fascia debrided to healthier edges. Hemostasis obtained. Wound packing done. Dry dressing applied. Patient tolerated procedure well. PAWEL MOORE MD Jan 30, 2017 16:55
--- NOTE | 2017-01-30 16:55 | CONS ---
Date/Time of Note Date/Time of Note DATE: 01/30/17 TIME: 16:55 Consultation Date/Type/Reason Admit Date/Time Jan 29, 2017 at 20:34 Respiratory: no complaints Cardiovascular: no complaints Gastrointestinal: no complaints Genitourinary: no complaints Musculoskeletal: no complaints Skin: erythema (Right thigh post surgical site, at site of excision, stitches still in place.) Neurologic: no complaints Past Medical History Medical History: diabetes, hypertension Social History Alcohol Use: occasionally Smoking Status: Former smoker (quit 20 years ago) Drug Use: none Exam/Review of Systems Vital Signs Vitals Vital Signs Date Time Temp Pulse Resp B/P Pulse Ox O2 Delivery O2 Flow Rate FiO2 01/30/17 08:00 97.7 68 20 133/78 96 01/29/17 21:40 Room Air Nasal Cannula 01/29/17 19:40 2.0 Intake and Output 01/29/17 01/29/17 01/30/17 15:00 23:00 07:00 Intake Total 1699 ml Balance 1699 ml Results Result Diagram: 01/30/17 0514 01/30/17 1348 Results 24 hrs Laboratory Tests Test 01/29/17 20:00 01/29/17 20:05 01/29/17 21:35 01/30/17 01:10 Urine Color YELLOW Urine Clarity SLIGHTLY CLOUDY A Urine pH 6.0 Urine Specific [place] 1.014 Urine Ketones NEGATIVE Urine Nitrite NEGATIVE Urine Bilirubin NEGATIVE Urine Urobilinogen NEGATIVE Urine Leukocyte Esterase NEGATIVE Urine Microscopic RBC 1 Urine Microscopic WBC 4 Urine Bacteria FEW A Urine Hemoglobin 1+ H Urine Glucose NEGATIVE Urine Total Protein NEGATIVE White Blood Count 10.1 # Red Blood Count 4.53 L Hemoglobin 13.0 L Hematocrit 37.9 L Mean Corpuscular Volume 83.7 Mean Corpuscular Hemoglobin 28.7 L Mean Corpuscular Hemoglobin Concent 34.3 Red Cell Distribution Width 14.7 H Platelet Count 193 Mean Platelet Volume 12.0 H Neutrophils % 70.8 Lymphocytes % 19.3 Monocytes % 7.8 Eosinophils % 1.3 Basophils % 0.3 Nucleated Red Blood Cells % 0.0 Neutrophils # (Manual) 7.2 Lymphocytes # 2.0 Monocytes # 0.8 Eosinophils # 0.1 Basophils # 0.0 Nucleated Red Blood Cells # 0.0 Prothrombin Time 12.3 Prothrombin Time Ratio 1.0 INR International Normalized Ratio 0.91 Activated Partial Thromboplast Time 30.3 Sodium Level 141 Potassium Level 2.4 *L Chloride Level 96 L Carbon Dioxide Level 35 H Anion Gap 12 Blood Urea Nitrogen 27 H Creatinine 1.32 H Glucose Level 161 Lactic Acid Level 2.4 *H 1.9 1.6 Calcium Level 9.9 Total Bilirubin 0.4 Direct Bilirubin 0.00 Indirect Bilirubin 0.4 Aspartate Amino Transf (AST/SGOT) 21 Alanine Aminotransferase (ALT/SGPT) 37 Alkaline Phosphatase 56 Troponin I 0.024 Total Protein 7.2 Albumin 3.9 Globulin 3.30 H Albumin/Globulin Ratio 1.18 Lipase 98 Test 01/30/17 05:14 01/30/17 11:54 01/30/17 13:48 White Blood Count 8.4 Red Blood Count 4.65 L Hemoglobin 13.1 L Hematocrit 39.3 L Mean Corpuscular Volume 84.5 Mean Corpuscular Hemoglobin 28.2 L Mean Corpuscular Hemoglobin Concent 33.3 Red Cell Distribution Width 14.7 H Platelet Count 178 Mean Platelet Volume 12.6 H Neutrophils % 72.4 Lymphocytes % 17.5 Monocytes % 8.0 Eosinophils % 1.5 Basophils % 0.4 Nucleated Red Blood Cells % 0.0 Neutrophils # (Manual) 6.1 Lymphocytes # 1.5 Monocytes # 0.7 Eosinophils # 0.1 Basophils # 0.0 Nucleated Red Blood Cells # 0.0 Sodium Level 145 H 143 Potassium Level 2.4 *L 2.5 *L Chloride Level 103 100 Carbon Dioxide Level 32 H 31 Anion Gap 12 15 Blood Urea Nitrogen 21 H 17 Creatinine 1.17 1.07 Glucose Level 161 118 # Calcium Level 9.3 8.9 Magnesium Level 1.6 L Bedside Glucose 114 Medications Medications Current Medications Losartan Potassium (Cozaar) 100 mg DAILY PO Last administered on 01/30/17 08:39 ; Admin Dose 100 MG; Start 01/30/17 at 09:00 Metoprolol Succinate (Toprol Xl) 100 mg DAILY PO Last administered on 01/30/17 09:10; Admin Dose 100 MG; Start 01/30/17 at 09:00 Tamsulosin HCl (Flomax) 0.4 mg HS PO Last administered on 01/30/17 00:39; Admin Dose 0.4 MG; Start 01/30/17 at 21:00 Amlodipine Besylate (Norvasc) 10 mg QHS PO ; Start 01/30/17 at 21:00 Miscellaneous Information 150 mg 150 mg QFridays .ROUTE ; Start 01/30/17 at 00:30 ; Status UNV Piperacillin Sod/ Tazobactam Sod (Zosyn 3.375gm/ 100 ml (Pmx)) 100 ml @ 200 mls /hr Q8 IVPB Last administered on 01/30/17 13:53; Admin Dose 200 MLS/HR; Start 01/30/17 at 06:00 Atorvastatin Calcium (Lipitor) 40 mg QHS PO ; Start 01/30/17 at 21:00 Pantoprazole 40 mg 40 mg DAILY@06 PO Last administered on 01/30/17 06:10; Admin Dose 40 MG; Start 01/30/17 at 06:00 Vancomycin HCl/ Sodium Chloride (Vancocin/NS) 500 ml @ 125 mls/hr Q24H IVPB ; Start 01/31/17 at 04:00 Diagnostic Test (Pha) (Accu-Chek) 1 ea 02 XX ; Start 01/31/17 at 02:00 Miscellaneous Information 1 ea NOTE XX ; Start 01/30/17 at 11:00 Glucose (Glutose) 15 gm Q15M PRN PO DECREASED GLUCOSE; Start 01/30/17 at 11:00 Glucose (Glutose) 22.5 gm Q15M PRN PO DECREASED GLUCOSE; Start 01/30/17 at 11:00 Dextrose (D50w Syringe) 25 ml Q15M PRN IV DECREASED GLUCOSE; Start 01/30/17 at 11:00 Dextrose (D50w Syringe) 50 ml Q15M PRN IV DECREASED GLUCOSE; Start 01/30/17 at 11:00 Glucagon (Glucagen) 1 mg Q15M PRN IM DECREASED GLUCOSE; Start 01/30/17 at 11:00 Glucose (Glutose) 15 gm Q15M PRN BUCCAL DECREASED GLUCOSE; Start 01/30/17 at 11: 00 Enoxaparin Sodium 40 mg 40 mg DAILY SC Last administered on 01/30/17 13:56; Admin Dose 40 MG; Start 01/30/17 at 12:00 Potassium Chloride/Sodium Chloride (NS-KCl 20 Meq) 1,000 ml @ 100 mls/hr Q10H IV Last administered on 01/30/17 13:54; Admin Dose 100 MLS/HR; Start 01/30/17 at 12:00 Miscellaneous Information ([trulicify] 150 MG: PLEASE ASK FAMILY... Q8H XX ; Start 01/30/17 at 12:30 Magnesium Sulfate/ Sodium Chloride (Magnesium Sulfate/NS) 106 ml @ 35.333 mls/ hr ONCE ONCE IVPB Last administered on 01/30/17t 16:48; Admin Dose 35.333 MLS/ HR; Start 01/30/17 at 14:00; Stop 01/30/17 at 16:59 PAWEL MOORE MD Jan 30, 2017 16:55
[2017-01-30] MEDS: ATORVASTATIN 40 MG TAB PO SCH (20:37)
[2017-01-30] MEDS: AMLODIPINE 10 MG TAB PO SCH (20:38)
[2017-01-30 20:50] VITALS: BP 152/76; RESP 18
[2017-01-31] MEDS ORDERED: ACCU-CHEK XX SCH (02:00)
[2017-01-31] MEDS: ACCU-CHEK XX SCH (02:00)
[2017-01-31 02:54] VITALS: BP 156/87; RESP 16
[2017-01-31] MEDS: VANCOMYCIN 2 GM in SOD CHLORIDE 0.9% 500 ML IVPB SCH (03:41)
[2017-01-31] MEDS ORDERED: HYDROCODONE/APAP (5/325) TAB PO PRN (04:30)
[2017-01-31] MEDS: PANTOPRAZOLE (EC) 40 MG TAB PO SCH (06:05)
[2017-01-31] MEDS: PIPER-TAZO 3.375 GM IV (PMX) 100 ML IVPB SCH ×4 (06:05→22:01)
[2017-01-31] MEDS: NS + KCL 20 MEQ 1,000 ML IV SCH (06:07)
[2017-01-31 06:55] LABS: BASOPHILS % 0.4 % (0.0-2.0); EOSINOPHILS # 0.1 10^3/ul (0.0-0.5); EOSINOPHILS % 1.6 % (0.0-7.0); HEMATOCRIT 34.8 % (42.0-52.0); HEMOGLOBIN 11.6 g/dl (14.0-18.0); LYMPHOCYTES # 1.8 10^3/ul (0.8-2.9); LYMPHOCYTES % 26.3 % (15.0-51.0); MEAN CORPUSCULAR HGB CONC 33.3 g/dl (32.0-37.0); MEAN CORPUSCULAR VOLUME 84.1 fl (82.0-101.0); MEAN PLATELET VOLUME 12.4 fl (7.4-10.4); MONOCYTE # 0.5 10^3/ul (0.3-0.9); MONOCYTES % 7.1 % (0.0-11.0); NEUTROPHILS % 63.9 % (39.0-77.0); PLATELET COUNT 181 10^3/UL (140-415); RED BLOOD COUNT 4.14 10^6/ul (4.70-6.10); RED CELL DISTRIBUTION WIDTH 14.9 % (11.5-14.5); WHITE BLOOD COUNT 6.8 10^3/ul (4.8-10.8)
[2017-01-31 07:37] LABS: ALBUMIN 3.2 g/dl (3.3-4.9); ALBUMIN/GLOBULIN RATIO 1.06; BILIRUBIN,INDIRECT 0.5 mg/dl (0-1.1); BILIRUBIN,TOTAL 0.5 mg/dl (0.2-1.3); CALCIUM 8.1 mg/dl (8.4-10.2); CREATININE 0.92 mg/dl (0.61-1.24); MAGNESIUM 1.6 mg/dl (1.7-2.5); PHOSPHORUS 2.8 mg/dl (2.5-4.9); TOTAL PROTEIN 6.2 g/dl (6.1-8.1)
[2017-01-31 07:40] LABS: POTASSIUM 2.3 mmol/L (3.5-5.1)
[2017-01-31] MEDS: INSULIN ASPART [NOVOLOG] 3 ML PEN SC SCH ×4 (08:00→21:00)
[2017-01-31] MEDS: LOSARTAN 50 MG TAB PO SCH (08:22)
[2017-01-31] MEDS: metFORMIN 500 MG TAB PO SCH ×2 (08:22→17:17)
[2017-01-31] MEDS: METOPROLOL (XL) 100 MG TAB PO SCH (08:22)
[2017-01-31] MEDS: ENOXAPARIN 40 MG/0.4 ML SYG SC SCH (08:27)
[2017-01-31] MEDS ORDERED: POTASSIUM CHLORIDE (SR) 20 MEQ TAB PO STA (08:38)
[2017-01-31 09:02] VITALS: BP 135/79; RESP 20
[2017-01-31] MEDS ORDERED: POTASSIUM CHLORIDE 250 ML IVPB ONE (09:30)
[2017-01-31] MEDS ORDERED: MAGNESIUM SULFATE 4 GM/100 ML 100 ML IVPB ONE (09:30)
[2017-01-31] MEDS ORDERED: KCL 30 MEQ in NS 150 ML IV ONE (10:00)
--- NOTE | 2017-01-31 10:23 | PN ---
Date/Time of Note Date/Time of Note DATE: 01/31/17 TIME: 10:07 Assessment/Plan VTE Prophylaxis VTE Prophylaxis Intervention: SCD's Lines/Catheters [facility] Saline Lock Assessment/Plan Assessment/Plan 61-year-old male with: 1. Right thigh postop wound infection, patient on Zosyn and vancomycin, agree with current regimen, given large area of induration and stitches still in place , CAT scan of the right thigh did show fluid collection/abscess, status post removal of the stitches and drainage of the abscess, currently with packing and wound care per general surgery. Wound culture pending for antibiotic adjustments. White blood cell count within normal, patient remains afebrile. 2. Squamous cells carcinoma right thigh lesion, status post excision with a 5 cm margin according to patient. Follow-up with dermatology as an outpatient post discharge 3. Hypertension: Outpatient medications 4. Diabetes mellitus: Hemoglobin A1c pending, continue metformin, sliding scale insulin, ADA diet. 5. Acute kidney injury, resolved, will D/c IVF 6. Hypokalemia, hypomagnesemia, repleting magnesium followed by potassium repletion. Repeat BMP at 3 PM today and further repletion as needed. 7. BPH: Continue Flomax Prophylaxis: Protonix for GI prophylaxis, Lovenox for DVT prophylaxis Disposition: Continue IV antibiotics, wound care, repeat BMP and potassium level at 3 PM for further repletion as needed. Subjective 24 Hr Interval Summary Free Text/Dictation Status post drainage of fluid collection/abscess on the right thigh post op wound area. Appreciate assistance from general surgery. Patient remained stable. Afebrile. White blood cell count within normal on IV antibiotics. Wound cultures pending. Still with moderate to severe hypokalemia requiring potassium and magnesium replacement again today. Exam/Review of Systems Vital Signs Vitals Vital Signs Date Time Temp Pulse Resp B/P Pulse Ox O2 Delivery O2 Flow Rate FiO2 01/31/17 09:02 98.0 64 20 135/79 96 01/29/17 21:40 Room Air Nasal Cannula 01/29/17 19:40 2.0 Intake and Output 01/30/17 01/30/17 01/31/17 15:00 23:00 07:00 Intake Total 600 ml 1816 ml 2500 ml Output Total 1850 ml Balance 600 ml 1816 ml 650 ml Exam Constitutional: alert, oriented, well developed Respiratory: clear to auscultation, normal air movement Cardiovascular: nl pulses, regular rate and rhythm Gastrointestinal: non-tender, soft Musculoskeletal: nl extremities to inspection, nl gait and stance Extremities: normal pulses, other (No edema, clubbing or cyanosis) 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, nl mental status, nl speech, nl strength Skin: other (Status post drainage of abscess at surgical site/postop wound, currently packed.) Results Result Diagram: 01/31/17 0553 01/31/17 0553 Results 24 hrs Laboratory Tests Test 01/30/17 11:54 01/30/17 13:48 01/30/17 17:21 01/30/17 20:34 Bedside Glucose 114 121 97 Sodium Level 143 Potassium Level 2.5 *L Chloride Level 100 Carbon Dioxide Level 31 Anion Gap 15 Blood Urea Nitrogen 17 Creatinine 1.07 Glucose Level 118 # Calcium Level 8.9 Test 01/31/17 05:53 01/31/17 08:20 White Blood Count 6.8 Red Blood Count 4.14 L Hemoglobin 11.6 L Hematocrit 34.8 L Mean Corpuscular Volume 84.1 Mean Corpuscular Hemoglobin 28.0 L Mean Corpuscular Hemoglobin Concent 33.3 Red Cell Distribution Width 14.9 H Platelet Count 181 Mean Platelet Volume 12.4 H Neutrophils % 63.9 Lymphocytes % 26.3 Monocytes % 7.1 Eosinophils % 1.6 Basophils % 0.4 Nucleated Red Blood Cells % 0.0 Neutrophils # (Manual) 4.3 Lymphocytes # 1.8 Monocytes # 0.5 Eosinophils # 0.1 Basophils # 0.0 Nucleated Red Blood Cells # 0.0 Sodium Level 141 Potassium Level 2.3 *L Chloride Level 100 Carbon Dioxide Level 34 H Anion Gap 9 # Blood Urea Nitrogen 13 Creatinine 0.92 Glucose Level 106 Calcium Level 8.1 L Phosphorus Level 2.8 Magnesium Level 1.6 L Total Bilirubin 0.5 Direct Bilirubin 0.00 Indirect Bilirubin 0.5 Aspartate Amino Transf (AST/SGOT) 21 Alanine Aminotransferase (ALT/SGPT) 42 Alkaline Phosphatase 52 Total Protein 6.2 # Albumin 3.2 L Globulin 3.00 Albumin/Globulin Ratio 1.06 Bedside Glucose 99 Medications Medications Current Medications Losartan Potassium (Cozaar) 100 mg DAILY PO Last administered on 01/31/17t 08:22 ; Admin Dose 100 MG; Start 01/30/17 at 09:00 Metoprolol Succinate (Toprol Xl) 100 mg DAILY PO Last administered on 01/31/17 08:22; Admin Dose 100 MG; Start 01/30/17 at 09:00 Tamsulosin HCl (Flomax) 0.4 mg HS PO Last administered on 01/30/17 20:37; Admin Dose 0.4 MG; Start 01/30/17 at 21:00 Amlodipine Besylate (Norvasc) 10 mg QHS PO Last administered on 01/30/17 20:38 ; Admin Dose 10 MG; Start 01/30/17 at 21:00 Miscellaneous Information 150 mg 150 mg QFridays .ROUTE ; Start 01/30/17 at 00:30 ; Status UNV Piperacillin Sod/ Tazobactam Sod (Zosyn 3.375gm/ 100 ml (Pmx)) 100 ml @ 200 mls /hr Q8 IVPB Last administered on 01/31/17 06:08; Admin Dose 200 MLS/HR; Start 01/30/17 at 06:00 Atorvastatin Calcium (Lipitor) 40 mg QHS PO Last administered on 01/30/17 20:37 ; Admin Dose 40 MG; Start 01/30/17 at 21:00 Pantoprazole 40 mg 40 mg DAILY@06 PO Last administered on 01/31/17 06:05; Admin Dose 40 MG; Start 01/30/17 at 06:00 Vancomycin HCl/ Sodium Chloride (Vancocin/NS) 500 ml @ 125 mls/hr Q24H IVPB Last administered on 01/31/17 03:41; Admin Dose 125 MLS/HR; Start 01/31/17 at 04: 00 Diagnostic Test (Pha) (Accu-Chek) 1 ea 02 XX ; Start 01/31/17 at 02:00 Miscellaneous Information 1 ea NOTE XX ; Start 01/30/17 at 11:00 Glucose (Glutose) 15 gm Q15M PRN PO DECREASED GLUCOSE; Start 01/30/17 at 11:00 Glucose (Glutose) 22.5 gm Q15M PRN PO DECREASED GLUCOSE; Start 01/30/17 at 11:00 Dextrose (D50w Syringe) 25 ml Q15M PRN IV DECREASED GLUCOSE; Start 01/30/17 at 11:00 Dextrose (D50w Syringe) 50 ml Q15M PRN IV DECREASED GLUCOSE; Start 01/30/17 at 11:00 Glucagon (Glucagen) 1 mg Q15M PRN IM DECREASED GLUCOSE; Start 01/30/17 at 11:00 Glucose (Glutose) 15 gm Q15M PRN BUCCAL DECREASED GLUCOSE; Start 01/30/17 at 11: 00 Enoxaparin Sodium 40 mg 40 mg DAILY SC Last administered on 01/31/17 08:27; Admin Dose 40 MG; Start 01/30/17 at 12:00 Potassium Chloride/Sodium Chloride (NS-KCl 20 Meq) 1,000 ml @ 100 mls/hr Q10H IV Last administered on 01/31/17 06:07; Admin Dose 100 MLS/HR; Start 01/30/17 at 12:00 Miscellaneous Information (*Order Clarification Bulletin) ([trulicify] 150 MG: PLEASE ASK FAMILY... Q8H XX ; Start 01/30/17 at 12:30 Acetaminophen/ Hydrocodone Bitart ([place] (5/325)) 1 tab Q4H PRN PO PAIN; Start 01/31/17 at 04:30 Acetaminophen/ Hydrocodone Bitart 2 tab 2 tab Q4H PRN PO PAIN Last administered on 01/31/17 04:12; Admin Dose 2 TAB; Start 01/31/17 at 04:30 Magnesium Sulfate 100 ml @ 25 mls/hr ONCE ONCE IVPB Last administered on 09:23; Admin Dose 25 MLS/HR; Start 01/31/17 at 09:30; Stop 01/31/17 at 13:29 Potassium Chloride (KCl 40 MEQ/250 ML NS) 250 ml @ 62.5 mls/hr ONCE ONCE IVPB ; Start 01/31/17 at 09:30; Stop 01/31/17 at 13:29 ERICKSON QUEVEDO Jan 31, 2017 10:20
[2017-01-31] MEDS: SODIUM HYPOCHLORITE 1/40% 1L IRRIG IRR SCH (14:28)
[2017-01-31 15:35] LABS: CALCIUM 7.8 mg/dl (8.4-10.2); MAGNESIUM 2.7 mg/dl (1.7-2.5)
[2017-01-31 15:45] LABS: POTASSIUM 2.8 mmol/L (3.5-5.1)
--- NOTE | 2017-01-31 17:27 | PN ---
Date/Time of Note Date/Time of Note DATE: 01/31/17 TIME: 17:05 Assessment/Plan Lines/Catheters IV C[facility] Type (from [facility] Saline Lock Assessment/Plan Chief Complaint/Hosp Course 1. Right thigh wound infection: s/p i&d -continue local care -abx per sensitivity -offload -pain management 2. Squamous cells carcinoma right thigh lesion, s/p excision -dermatology/primary care follow up outpatient 3. Hypertension -medical management 4. Diabetes mellitus: Hemoglobin A1c -blood sugar optimization 5. Acute kidney injury, resolved 6. Electrolyte imbalance -optimize lytes; replete and monitor 7. BPH: on Flomax 8. Bacteruria: -encourage frequent bladder emptying Thank you. Patient seen and examined in collaboration with Dr. Riley Emery. Problems: Subjective 24 Hr Interval Summary S/p I&D wound packed. Continuing to drain sanguinous drainage. Wound discomfort improved. No fevers, chills, sob, cp, palpitations, n/v/d/dysuria, excessive wound drainage. Exam/Review of Systems Vital Signs Vitals Vital Signs Date Time Temp Pulse Resp B/P Pulse Ox O2 Delivery O2 Flow Rate FiO2 01/31/17 09:02 98.0 64 20 135/79 96 01/29/17 21:40 Room Air Nasal Cannula 01/29/17 19:40 2.0 Intake and Output 01/30/17 01/30/17 01/31/17 15:00 23:00 07:00 Intake Total 600 ml 1816 ml 2500 ml Output Total 1850 ml Balance 600 ml 1816 ml 650 ml Exam Constitutional: alert, oriented Psych: nl mood/affect, no complaints Head: atraumatic, normocephalic Eyes: nl conjunctiva, nl lids, nl sclera ENMT: mucosa pink and moist, nl lips & teeth Neck: non-tender, supple Respiratory: clear to auscultation, normal air movement Cardiovascular: nl pulses, regular rate and rhythm Gastrointestinal: non-tender, soft Musculoskeletal: nl extremities to inspection, nl gait and stance Extremities: normal pulses Neurological: nl mental status, nl speech, nl strength Skin: nl turgor, other (right thigh packed; periwound erythema ) Lymph: nl lymph nodes Results Result Diagram: 01/31/17 0553 01/31/17 1505 DARCY KOHLI NP Jan 31, 2017 17:15
[2017-01-31 18:38] VITALS: BP 131/77; RESP 20
[2017-01-31 21:09] VITALS: BP 161/78; RESP 16
[2017-01-31] MEDS: TAMSULOSIN (SR) 0.4 MG CAP PO SCH (21:57)
[2017-01-31] MEDS: ATORVASTATIN 40 MG TAB PO SCH (21:57)
[2017-01-31] MEDS: AMLODIPINE 10 MG TAB PO SCH (22:00)
[2017-01-31 22:01] VITALS: BP 170/83; PULSE 69
[2017-01-31] MEDS: POTASSIUM CHLORIDE (SR) 20 MEQ TAB PO SCH (23:00)
[2017-02-01] MEDS: POTASSIUM CHLORIDE (SR) 20 MEQ TAB PO SCH ×2 (01:16→03:32)
[2017-02-01] MEDS: ACCU-CHEK XX SCH (01:26)
[2017-02-01 02:50] VITALS: BP 160/72; RESP 16
[2017-02-01] MEDS: VANCOMYCIN 2 GM in SOD CHLORIDE 0.9% 500 ML IVPB SCH (03:32)
[2017-02-01 05:56] LABS: BASOPHILS % 0.4 % (0.0-2.0); EOSINOPHILS # 0.1 10^3/ul (0.0-0.5); EOSINOPHILS % 1.6 % (0.0-7.0); HEMATOCRIT 35.8 % (42.0-52.0); HEMOGLOBIN 11.8 g/dl (14.0-18.0); LYMPHOCYTES # 1.7 10^3/ul (0.8-2.9); LYMPHOCYTES % 24.6 % (15.0-51.0); MEAN CORPUSCULAR HEMOGLOBIN 27.5 pg (29.0-33.0); MEAN CORPUSCULAR VOLUME 83.4 fl (82.0-101.0); MEAN PLATELET VOLUME 11.5 fl (7.4-10.4); MONOCYTE # 0.5 10^3/ul (0.3-0.9); MONOCYTES % 7.1 % (0.0-11.0); NEUTROPHILS % 65.7 % (39.0-77.0); PLATELET COUNT 191 10^3/UL (140-415); RED BLOOD COUNT 4.29 10^6/ul (4.70-6.10); RED CELL DISTRIBUTION WIDTH 14.9 % (11.5-14.5); WHITE BLOOD COUNT 6.7 10^3/ul (4.8-10.8)
[2017-02-01 06:18] LABS: MAGNESIUM 1.9 mg/dl (1.7-2.5); PHOSPHORUS 2.3 mg/dl (2.5-4.9)
[2017-02-01 06:28] LABS: ALBUMIN 3.3 g/dl (3.3-4.9); ALBUMIN/GLOBULIN RATIO 1.1; BILIRUBIN,INDIRECT 0.4 mg/dl (0-1.1); BILIRUBIN,TOTAL 0.4 mg/dl (0.2-1.3); CALCIUM 7.7 mg/dl (8.4-10.2); CREATININE 0.88 mg/dl (0.61-1.24); POTASSIUM 3.1 mmol/L (3.5-5.1); TOTAL PROTEIN 6.3 g/dl (6.1-8.1)
[2017-02-01] MEDS: PIPER-TAZO 3.375 GM IV (PMX) 100 ML IVPB SCH (06:37)
[2017-02-01] MEDS: PANTOPRAZOLE (EC) 40 MG TAB PO SCH (06:37)
[2017-02-01] MEDS: HYDROCODONE/APAP (5/325) TAB PO PRN ×2 (06:51→21:06)
[2017-02-01] MEDS: INSULIN ASPART [NOVOLOG] 3 ML PEN SC SCH ×4 (08:00→21:00)
[2017-02-01] MEDS: LOSARTAN 50 MG TAB PO SCH (08:19)
[2017-02-01] MEDS: metFORMIN 500 MG TAB PO SCH ×2 (08:19→17:20)
[2017-02-01] MEDS: METOPROLOL (XL) 100 MG TAB PO SCH (08:19)
[2017-02-01] MEDS: ENOXAPARIN 40 MG/0.4 ML SYG SC SCH (08:23)
[2017-02-01] MEDS ORDERED: LEVOFLOXACIN 750 MG TABLET PO SCH (09:00)
[2017-02-01] MEDS ORDERED: POTASSIUM CHLORIDE (SR) 20 MEQ TAB PO ONE (09:00)
--- NOTE | 2017-02-01 09:23 | PN ---
Date/Time of Note Date/Time of Note DATE: 02/01/17 TIME: 09:17 Assessment/Plan Lines/Catheters IV C[facility]ter Type (from [facility]): Saline Lock Assessment/Plan Chief Complaint/Hosp Course 1. Right thigh wound infection: s/p i&d -continue local care; increase dressing changes to twice a day 2/2 large drainage amount -abx per sensitivity -offload -pain management 2. Squamous cells carcinoma right thigh lesion, s/p excision -dermatology/primary care follow up outpatient 3. Hypertension: bp high -medical management 4. Diabetes mellitus: Hemoglobin A1c -blood sugar optimization 5. Acute kidney injury, resolved 6. Electrolyte imbalance -optimize lytes; replete and monitor 7. BPH: on Flomax 8. Bacteruria: -encourage frequent bladder emptying 9. Hypocalcemia: -replete and monitor Thank you. Patient seen and examined in collaboration with Dr. Riley Emery. Problems: Subjective 24 Hr Interval Summary Feeling well. Large drainage from wound. No odor. redness and swelling from area improved. No fevers, chills, sob, cp, palpitations, wound pain, paresthesia , n/v/d/dysuria. Exam/Review of Systems Vital Signs Vitals Vital Signs Date Time Temp Pulse Resp B/P Pulse Ox O2 Delivery O2 Flow Rate FiO2 02/01/17 02:50 97.5 73 16 160/72 94 01/29/17 21:40 Room Air Nasal Cannula 01/29/17 19:40 2.0 Intake and Output 01/31/17 01/31/17 02/01/17 14:59 22:59 06:59 Intake Total 1200 ml 1550 ml 680 ml Output Total 1700 ml 1200 ml Balance 1200 ml -150 ml -520 ml Exam Free Text/Dictation Constitutional: alert, oriented Psych: nl mood/affect, no complaints Head: atraumatic, normocephalic Eyes: nl conjunctiva, nl lids, nl sclera ENMT: mucosa pink and moist, nl lips & teeth Neck: non-tender, supple Respiratory: clear to auscultation, normal air movement Cardiovascular: nl pulses, regular rate and rhythm Gastrointestinal: non-tender, soft Musculoskeletal: nl extremities to inspection, nl gait and stance Extremities: normal pulses Neurological: nl mental status, nl speech, nl strength Skin: nl turgor, other (right thigh wound bed pink, min debris; periwound erythema improved ) Lymph: nl lymph nodes Results Result Diagram: 02/01/17 0536 02/01/17 0536 DARCY KOHLI NP Feb 01, 2017 09:23
[2017-02-01] MEDS: SODIUM HYPOCHLORITE 1/40% 1L IRRIG IRR SCH (09:40)
[2017-02-01] MEDS ORDERED: POTASSIUM PHOSPHATE 30 MM in SOD CHLORIDE 0.9% 250 ML IVPB SCH (10:00)
[2017-02-01] MEDS ORDERED: MAGNESIUM SULFATE 2 GM/50 ML 50 ML IVPB ONE (10:00)
--- NOTE | 2017-02-01 12:01 | PN ---
Date/Time of Note Date/Time of Note DATE: 02/01/17 TIME: 11:47 Assessment/Plan VTE Prophylaxis VTE Prophylaxis Intervention: ambulation, SCD's Lines/Catheters IV Catheter Type (from Nrs): Saline Lock Assessment/Plan Assessment/Plan 61-year-old male with: 1. Right thigh postop wound infection with abscess, s/p I&D of abscess POD#2. Wound cx with MRSA today, on isolation contact D/c zosyn and continue Vancomycin for now May be able to d/c on Bactrim with home health wound care by tomorrow, I will discuss with Surgery Otherwise doing well 2. Squamous cells carcinoma right thigh lesion, status post excision with a 5 cm margin according to patient. Follow-up with dermatology as an outpatient post discharge 3. Hypertension: Outpatient medications 4. Diabetes mellitus: Hemoglobin A1c pending, continue metformin, sliding scale insulin, ADA diet. 5. Acute kidney injury, resolved, will D/c IVF 6. Hypokalemia, hypomagnesemia, repleting magnesium followed by potassium repletion again today. Repeat BMP at 3 PM today and further repletion as needed. 7. BPH: Continue Flomax Prophylaxis: Protonix for GI prophylaxis, Lovenox for DVT prophylaxis Disposition: Continue antibiotics, wound care, repeat BMP and potassium level at 3 PM and d/c plan tomorrow. Subjective 24 Hr Interval Summary Free Text/Dictation Patient doing well No complaints today Erythema around wound better Wound cx back with MRSA today so on Isolation Still hypokalemia and Hypomag that needs repletion Exam/Review of Systems Vital Signs Vitals Vital Signs Date Time Temp Pulse Resp B/P Pulse Ox O2 Delivery O2 Flow Rate FiO2 02/01/17 02:50 97.5 73 16 160/72 94 01/29/17 21:40 Room Air Nasal Cannula 01/29/17 19:40 2.0 Intake and Output 01/31/17 01/31/17 02/01/17 15:00 23:00 07:00 Intake Total 1200 ml 1550 ml 680 ml Output Total 1700 ml 1200 ml Balance 1200 ml -150 ml -520 ml Exam Constitutional: alert, oriented, well developed Gastrointestinal: non-tender, soft Musculoskeletal: nl extremities to inspection Extremities: normal pulses, other (right thigh post op wound/abscess s/p I&D with packing ) Neurological: CRAFT COORDINATOR II-XII intact, nl mental status, nl speech, nl strength Results Result Diagram: 02/01/17 0536 02/01/17 0536 Results 24 hrs Laboratory Tests Test 01/31/17 12:11 01/31/17 15:05 01/31/17 17:16 01/31/17 19:52 Bedside Glucose 119 98 Sodium Level 140 Potassium Level 2.8 *L 3.1 L Chloride Level 101 Carbon Dioxide Level 30 Anion Gap 12 Blood Urea Nitrogen 13 Creatinine 1.00 Glucose Level 113 Calcium Level 7.8 L Magnesium Level 2.7 #H Test 01/31/17 21:46 02/01/17 05:36 02/01/17 08:01 Bedside Glucose 101 132 White Blood Count 6.7 Red Blood Count 4.29 L Hemoglobin 11.8 L Hematocrit 35.8 L Mean Corpuscular Volume 83.4 Mean Corpuscular Hemoglobin 27.5 L Mean Corpuscular Hemoglobin Concent 33.0 Red Cell Distribution Width 14.9 H Platelet Count 191 Mean Platelet Volume 11.5 H Neutrophils % 65.7 Lymphocytes % 24.6 Monocytes % 7.1 Eosinophils % 1.6 Basophils % 0.4 Nucleated Red Blood Cells % 0.0 Neutrophils # (Manual) 4.4 Lymphocytes # 1.7 Monocytes # 0.5 Eosinophils # 0.1 Basophils # 0.0 Nucleated Red Blood Cells # 0.0 Sodium Level 143 Potassium Level 3.1 L Chloride Level 105 Carbon Dioxide Level 30 Anion Gap 11 Blood Urea Nitrogen 12 Creatinine 0.88 Glucose Level 109 Hemoglobin A1c 6.1 H Calcium Level 7.7 L Phosphorus Level 2.3 L Magnesium Level 1.9 Total Bilirubin 0.4 Direct Bilirubin 0.00 Indirect Bilirubin 0.4 Aspartate Amino Transf (AST/SGOT) 21 Alanine Aminotransferase (ALT/SGPT) 37 Alkaline Phosphatase 51 Total Protein 6.3 Albumin 3.3 Globulin 3.00 Albumin/Globulin Ratio 1.10 Medications Medications Current Medications Losartan Potassium (Cozaar) 100 mg DAILY PO Last administered on 02/01/17 08:19 ; Admin Dose 100 MG; Start 01/30/17 at 09:00 Metoprolol Succinate (Toprol Xl) 100 mg DAILY PO Last administered on 02/01/17 08:19; Admin Dose 100 MG; Start 01/30/17 at 09:00 Tamsulosin HCl (Flomax) 0.4 mg HS PO Last administered on 01/31/17 21:57; Admin Dose 0.4 MG; Start 01/30/17 at 21:00 Amlodipine Besylate (Norvasc) 10 mg QHS PO Last administered on 01/31/17 22:00 ; Admin Dose 10 MG; Start 01/30/17 at 21:00 Miscellaneous Information 150 mg QFridays .ROUTE ; Start 01/30/17 at 00:30; Status UNV Atorvastatin Calcium (Lipitor) 40 mg QHS PO Last administered on 01/31/17 21:57 ; Admin Dose 40 MG; Start 01/30/17 at 21:00 Pantoprazole 40 mg 40 mg DAILY@06 PO Last administered on 02/01/17 06:37; Admin Dose 40 MG; Start 01/30/17 at 06:00 Vancomycin HCl/ Sodium Chloride (Vancocin/NS) 500 ml @ 125 mls/hr Q24H IVPB Last administered on 02/01/17 03:32; Admin Dose 125 MLS/HR; Start 01/31/17 at 04: 00 Diagnostic Test (Pha) (Accu-Chek) 1 ea 02 XX ; Start 01/31/17 at 02:00 Miscellaneous Information 1 ea NOTE XX ; Start 01/30/17 at 11:00 Glucose (Glutose) 15 gm Q15M PRN PO DECREASED GLUCOSE; Start 01/30/17 at 11:00 Glucose (Glutose) 22.5 gm Q15M PRN PO DECREASED GLUCOSE; Start 01/30/17 at 11:00 Dextrose (D50w Syringe) 25 ml Q15M PRN IV DECREASED GLUCOSE; Start 01/30/17 at 11:00 Dextrose (D50w Syringe) 50 ml Q15M PRN IV DECREASED GLUCOSE; Start 01/30/17 at 11:00 Glucagon (Glucagen) 1 mg Q15M PRN IM DECREASED GLUCOSE; Start 01/30/17 at 11:00 Glucose (Glutose) 15 gm Q15M PRN BUCCAL DECREASED GLUCOSE; Start 01/30/17 at 11: 00 Enoxaparin Sodium (Lovenox) 40 mg DAILY SC Last administered on 02/01/17 08:23 ; Admin Dose 40 MG; Start 01/30/17 at 12:00 Miscellaneous Information (*Order Clarification Bulletin) ([trulicify] 150 MG: PLEASE ASK FAMILY... Q8H XX ; Start 01/30/17 at 12:30 Acetaminophen/ Hydrocodone Bitart ([place] (5/325)) 1 tab Q4H PRN PO PAIN Last administered on 02/01/17 06:51; Admin Dose 1 TAB; Start 01/31/17 at 04:30 Acetaminophen/ Hydrocodone Bitart ([place] (5/325)) 2 tab Q4H PRN PO PAIN Last administered on 01/31/17 04:12; Admin Dose 2 TAB; Start 01/31/17 at 04:30 Sodium Hypochlorite 1 applic 1 applic DAILY IRR Last administered on 02/01/17 09:40; Admin Dose 1 APPLIC; Start 01/31/17 at 13:00 Magnesium Sulfate 50 ml @ 25 mls/hr ONCE ONCE IVPB Last administered on 10:47; Admin Dose 25 MLS/HR; Start 02/01/17 at 10:00; Stop 02/01/17 at 11:59 Potassium Phosphate/Sodium Chloride (K Phos (Mm)/NS) 260 ml @ 65 mls/hr ONCE IVPB ; Start 02/01/17 at 10:00; Stop 02/01/17 at 13:59 Miscellaneous Information (*Rx Drug Level Order Reminder*) VANCO TROUGH @ 0, 200 ON... ONCE ONCE XX ; Start 02/02/17 at 03:00; Stop 02/02/17 at 03:01 ERICKSON QUEVEDO Feb 01, 2017 11:57
[2017-02-01 12:36] VITALS: BP 142/76; RESP 20
[2017-02-01] MEDS ORDERED: LIDOCAINE 1% (MPF) 5 ML VIAL SC ONE (13:00)
[2017-02-01 17:03] VITALS: BP 156/81; RESP 18
--- NOTE | 2017-02-01 17:31 | CONS ---
Date/Time of Note Date/Time of Note DATE: 02/01/17 TIME: 17:29 Assessment/Plan Assessment/Plan Chief Complaint/Hosp Course R thagh MRSA infected wound, s/p i&d R thigh SCC, s/p excision DM Obesity HTN Plan: Continue Vanco, add Rifampin, consider PICC==> dc on 2 weeks abx, f/u PMD DW pt DW Dr Quevedo Problems: Consultation Date/Type/Reason Admit Date/Time Jan 29, 2017 at 20:34 Type of Consultation: id Referring Provider: ERICKSON QUEVEDO Respiratory: no complaints Cardiovascular: no complaints Gastrointestinal: no complaints Genitourinary: no complaints Musculoskeletal: no complaints Skin: erythema (Right thigh post surgical site, at site of excision, stitches still in place.) Neurologic: no complaints Psychological: nl mood/affect, no complaints Past Medical History Medical History: diabetes, hypertension Social History Alcohol Use: occasionally Smoking Status: Former smoker (quit 20 years ago) Drug Use: none Exam/Review of Systems Vital Signs Vitals Vital Signs Date Time Temp Pulse Resp B/P Pulse Ox O2 Delivery O2 Flow Rate FiO2 02/01/17 17:03 98.0 67 18 156/81 95 01/29/17 21:40 Room Air Nasal Cannula 01/29/17 19:40 2.0 Intake and Output 01/31/17 01/31/17 02/01/17 15:00 23:00 07:00 Intake Total 1200 ml 1550 ml 680 ml Output Total 1700 ml 1200 ml Balance 1200 ml -150 ml -520 ml Results Result Diagram: 02/01/17 0536 02/01/17 1321 Results 24 hrs Laboratory Tests Test 01/31/17 19:52 01/31/17 21:46 02/01/17 05:36 02/01/17 08:01 Potassium Level 3.1 L 3.1 L Bedside Glucose 101 132 White Blood Count 6.7 Red Blood Count 4.29 L Hemoglobin 11.8 L Hematocrit 35.8 L Mean Corpuscular Volume 83.4 Mean Corpuscular Hemoglobin 27.5 L Mean Corpuscular Hemoglobin Concent 33.0 Red Cell Distribution Width 14.9 H Platelet Count 191 Mean Platelet Volume 11.5 H Neutrophils % 65.7 Lymphocytes % 24.6 Monocytes % 7.1 Eosinophils % 1.6 Basophils % 0.4 Nucleated Red Blood Cells % 0.0 Neutrophils # (Manual) 4.4 Lymphocytes # 1.7 Monocytes # 0.5 Eosinophils # 0.1 Basophils # 0.0 Nucleated Red Blood Cells # 0.0 Sodium Level 143 Chloride Level 105 Carbon Dioxide Level 30 Anion Gap 11 Blood Urea Nitrogen 12 Creatinine 0.88 Glucose Level 109 Hemoglobin A1c 6.1 H Calcium Level 7.7 L Phosphorus Level 2.3 L Magnesium Level 1.9 Total Bilirubin 0.4 Direct Bilirubin 0.00 Indirect Bilirubin 0.4 Aspartate Amino Transf (AST/SGOT) 21 Alanine Aminotransferase (ALT/SGPT) 37 Alkaline Phosphatase 51 Total Protein 6.3 Albumin 3.3 Globulin 3.00 Albumin/Globulin Ratio 1.10 Test 02/01/17 12:05 02/01/17 13:21 02/01/17 17:19 Bedside Glucose 105 106 Potassium Level 3.7 Medications Medications Current Medications Losartan Potassium (Cozaar) 100 mg DAILY PO Last administered on 02/01/17 08:19 ; Admin Dose 100 MG; Start 01/30/17 at 09:00 Metoprolol Succinate (Toprol Xl) 100 mg DAILY PO Last administered on 02/01/17 08:19; Admin Dose 100 MG; Start 01/30/17 at 09:00 Tamsulosin HCl (Flomax) 0.4 mg HS PO Last administered on 01/31/17 21:57; Admin Dose 0.4 MG; Start 01/30/17 at 21:00 Amlodipine Besylate (Norvasc) 10 mg QHS PO Last administered on 01/31/17 22:00 ; Admin Dose 10 MG; Start 01/30/17 at 21:00 Miscellaneous Information 150 mg QFridays .ROUTE ; Start 01/30/17 at 00:30; Status UNV Atorvastatin Calcium (Lipitor) 40 mg QHS PO Last administered on 01/31/17 21:57 ; Admin Dose 40 MG; Start 01/30/17 at 21:00 Pantoprazole 40 mg 40 mg DAILY@06 PO Last administered on 02/01/17 06:37; Admin Dose 40 MG; Start 01/30/17 at 06:00 Vancomycin HCl/ Sodium Chloride (Vancocin/NS) 500 ml @ 125 mls/hr Q24H IVPB Last administered on 02/01/17 03:32; Admin Dose 125 MLS/HR; Start 01/31/17 at 04: 00 Diagnostic Test (Pha) (Accu-Chek) 1 ea 02 XX ; Start 01/31/17 at 02:00 Miscellaneous Information 1 ea NOTE XX ; Start 01/30/17 at 11:00 Glucose (Glutose) 15 gm Q15M PRN PO DECREASED GLUCOSE; Start 01/30/17 at 11:00 Glucose (Glutose) 22.5 gm Q15M PRN PO DECREASED GLUCOSE; Start 01/30/17 at 11:00 Dextrose (D50w Syringe) 25 ml Q15M PRN IV DECREASED GLUCOSE; Start 01/30/17 at 11:00 Dextrose (D50w Syringe) 50 ml Q15M PRN IV DECREASED GLUCOSE; Start 01/30/17 at 11:00 Glucagon (Glucagen) 1 mg Q15M PRN IM DECREASED GLUCOSE; Start 01/30/17 at 11:00 Glucose (Glutose) 15 gm Q15M PRN BUCCAL DECREASED GLUCOSE; Start 01/30/17 at 11: 00 Enoxaparin Sodium (Lovenox) 40 mg DAILY SC Last administered on 02/01/17 08:23 ; Admin Dose 40 MG; Start 01/30/17 at 12:00 Miscellaneous Information (*Order Clarification Bulletin) ([trulicify] 150 MG: PLEASE ASK FAMILY... Q8H XX ; Start 01/30/17 at 12:30 Acetaminophen/ Hydrocodone Bitart ([place] (5/325)) 1 tab Q4H PRN PO PAIN Last administered on 02/01/17 06:51; Admin Dose 1 TAB; Start 01/31/17 at 04:30 Acetaminophen/ Hydrocodone Bitart ([place] (5/325)) 2 tab Q4H PRN PO PAIN Last administered on 01/31/17 04:12; Admin Dose 2 TAB; Start 01/31/17 at 04:30 Sodium Hypochlorite ([place] ([place] 1/40%)) 1 applic DAILY IRR Last administered on 02/01/17 09:40; Admin Dose 1 APPLIC; Start 01/31/17 at 13:00 Miscellaneous Information (*Rx Drug Level Order Reminder*) VANCO TROUGH @ 0, 200 ON... ONCE ONCE XX ; Start 02/02/17 at 03:00; Stop 02/02/17 at 03:01 BRIAN QUINN NP Feb 01, 2017 17:31
[2017-02-01] MEDS: RIFAMPIN 300 MG CAP PO SCH (18:42)
--- NOTE | 2017-02-01 20:20 | RADRPT ---
PROCEDURE: Chest radiograph CLINICAL INDICATION: Central line placement. COMPARISON: Radiograph 01/29/2017. TECHNIQUE: Single frontal chest radiograph. FINDINGS: The left PICC terminates in the superior cavoatrial junction. The lungs are clear. No pleural effusion or focal parenchymal opacity. Cardiomegaly. No suspicious bone lesion. IMPRESSION: 1. All support lines and tubes in appropriate position. 2. Cardiomegaly. RPTAT: [facility] Physician Nupur Date Time Electronically viewed and signed by Nicholas Schumacher Physician on 02/01/2017 20:20 LG/
[2017-02-01] MEDS: TAMSULOSIN (SR) 0.4 MG CAP PO SCH (20:45)
[2017-02-01] MEDS: AMLODIPINE 10 MG TAB PO SCH (20:45)
[2017-02-01] MEDS: ATORVASTATIN 40 MG TAB PO SCH (20:45)
[2017-02-01 21:01] VITALS: BP 168/95; RESP 16
--- NOTE | 2017-02-01 23:06 | RADRPT ---
PROCEDURE: Ultrasound guidance for placement of needle in left upper extremity vein. CLINICAL INDICATION: PICC placement. TECHNIQUE: Limited sonography of the left upper extremity was performed. Ultrasound images were recorded and st ored in the patient's medical record. COMPARISON: Chest radiograph of the same day. FINDINGS: The ultrasound images demonstrate a patent left upper extremity vein. The PICC line was inserted by the PICC line nurse. IMPRESSION: 1. Ultrasound guidance for a needle placement in a left upper extremity vein. 2. The visualized left upper extremity vein is patent. RPTAT: HFN .Abhay Gallagher MD, Date Time Electronically viewed and signed by .Abhay Gallagher MD, on 02/01/2017 23:06 .N/
[2017-02-02] MEDS: TRIMETHOPRIM/SULFAMETHOXAZOLE 15 ML in DEXTROSE 5% 500 ML IVPB SCH ×2 (00:59→11:35)
[2017-02-02] MEDS: ACCU-CHEK XX SCH (02:00)
--- NOTE | 2017-02-02 02:36 | CONS ---
DATE OF ADMISSION: 01/29/2017 DATE OF CONSULTATION: 02/02/2017 Dr. Darline Chapman dictating infectious disease consultation for Dr. Cornelio Jolly. HISTORY OF PRESENT ILLNESS: The patient is a 61-year-old [place] Methodist white male who was admitted on 01/29/2017 home with a chief complaint of an infected squamous cell carcinoma excision site. The patient had a squamous cell carcinoma removed from his right upper thigh 6 days prior to admission. Within 3 days, he began having redness and drainage. He was placed on Keflex. It apparently progressed and he came to the hospital. He was afebrile. His white blood cell count was not elevated, but he had a large wound with sutures about 8 cm long. It was reportedly 5 mm clear margins of squamous cell carcinoma. The patient was begun treatment with Zosyn and vancomycin initially until the cultures grew MRSA and he was changed to vancomycin and rifampin. The patient has had no fever or chills. He has a history of diabetes mellitus and also has a family history on the mother's and father's side of the squamous cell carcinoma on sun- exposed areas. PAST MEDICAL HISTORY: Remarkable in that he has diabetes mellitus, hypertension, obesity and benign prostatic hypertrophy. ALLERGIES: HE HAS NO KNOWN ALLERGIES. MEDICATION: Include: 1. Vancomycin. 2. Rifampin. 3. Tamsulosin 0.4 mg. 4. Amlodipine besylate 10 mg daily. 5. Atorvastatin 40 mg daily. 6. Lovenox. 7. Apparently sliding-scale insulin for his diabetes. 8. Losartan 100 mg. 9. Metoprolol succinate 100 mg a day. 10. Pantoprazole 40 mg. 11. Metformin 1000 mg with breakfast and dinner. PHYSICAL EXAMINATION: GENERAL APPEARANCE: Reveals a large, tall, obese, [place] male, lying in bed, who is alert, oriented, cooperative, and very eager to show me the phone pictures of his wound. HEENT: The pupils were equal, round, react to light. Extraocular movements are full. VITAL SIGNS: The patient's temperature was 97.9, pulse 68, respirations 16, blood pressure 168/95, left arm. O2 saturation was 95 percent on room air. NECK: Supple. There is no jugular venous distention. CHEST: Broad, obese. Clear to auscultation. ABDOMEN: Protuberant and firm. No palpable organs. EXTREMITIES: Reveal no edema or cyanosis. There is a bandage on the lateral aspect of the upper thigh on the hip, which reveals that the sutures have been removed from his wound and the wound area is draining a very minimal amount of serosanguineous purulent fluid and that the initial surrounding erythema is somewhat smaller and is more on the pink side than on the red side and is showing the proper coloration direction, which is from red to orange and then to light brown. IMPRESSION: 1. Methicillin-resistant Staphylococcus aureus wound infection, right hip, status post squamous cell carcinoma resection, right hip. 2. Diabetes mellitus. 3. Hypertension. 4. Obesity. 5. Benign prostatic hypertrophy. RECOMMENDATIONS: I would change the patient to Bactrim and rifampin rather than vancomycin, as you get a better drug level with Bactrim and would also facilitate transfer to an outside the hospital, because he would be able to take that orally along with rifampin. Thank you for referring this interesting patient to Dr. Jolly. Dictated By: Darline Chapman MD /zaheer/mickie /Document#: [id number]
[2017-02-02 03:15] VITALS: BP 147/83; RESP 16
[2017-02-02 03:41] LABS: BASOPHILS % 0.5 % (0.0-2.0); EOSINOPHILS # 0.1 10^3/ul (0.0-0.5); EOSINOPHILS % 1.2 % (0.0-7.0); HEMATOCRIT 36.6 % (42.0-52.0); HEMOGLOBIN 12.3 g/dl (14.0-18.0); LYMPHOCYTES % 27.7 % (15.0-51.0); MEAN CORPUSCULAR HEMOGLOBIN 28.4 pg (29.0-33.0); MEAN CORPUSCULAR HGB CONC 33.6 g/dl (32.0-37.0); MEAN CORPUSCULAR VOLUME 84.5 fl (82.0-101.0); MONOCYTE # 0.5 10^3/ul (0.3-0.9); MONOCYTES % 6.8 % (0.0-11.0); NEUTROPHILS % 62.6 % (39.0-77.0); PLATELET COUNT 196 10^3/UL (140-415); RED BLOOD COUNT 4.33 10^6/ul (4.70-6.10); RED CELL DISTRIBUTION WIDTH 14.6 % (11.5-14.5); WHITE BLOOD COUNT 7.3 10^3/ul (4.8-10.8)
[2017-02-02 04:33] LABS: CALCIUM 8.2 mg/dl (8.4-10.2); CREATININE 0.85 mg/dl (0.61-1.24); MAGNESIUM 1.8 mg/dl (1.7-2.5); POTASSIUM 3.4 mmol/L (3.5-5.1)
[2017-02-02] MEDS: VANCOMYCIN 2 GM in SOD CHLORIDE 0.9% 500 ML IVPB SCH (05:08)
[2017-02-02] MEDS: PANTOPRAZOLE (EC) 40 MG TAB PO SCH (05:09)
[2017-02-02 07:57] VITALS: BP 156/74; RESP 18
[2017-02-02] MEDS: INSULIN ASPART [NOVOLOG] 3 ML PEN SC SCH ×3 (08:00→17:29)
[2017-02-02] MEDS: metFORMIN 500 MG TAB PO SCH ×2 (08:09→17:30)
[2017-02-02] MEDS: RIFAMPIN 300 MG CAP PO SCH (08:09)
[2017-02-02] MEDS: LOSARTAN 50 MG TAB PO SCH (08:10)
[2017-02-02] MEDS: METOPROLOL (XL) 100 MG TAB PO SCH (08:10)
[2017-02-02] MEDS: ENOXAPARIN 40 MG/0.4 ML SYG SC SCH (08:11)
[2017-02-02] MEDS ORDERED: POTASSIUM CHLORIDE (SR) 20 MEQ TAB PO STA (08:38)
[2017-02-02] MEDS ORDERED: MAGNESIUM SULFATE 2 GM/50 ML 50 ML IVPB STA (08:38)
--- NOTE | 2017-02-02 08:40 | PN ---
Date/Time of Note Date/Time of Note DATE: 02/02/17 TIME: 08:32 Assessment/Plan Lines/Catheters IV Catheter Type (from Nrsg): PICC Line Assessment/Plan Chief Complaint/Hosp Course 1. Right thigh wound infection: s/p i&d -continue local care at home with home care -abx per sensitivity -offload -pain management 2. Squamous cells carcinoma right thigh lesion, s/p excision -dermatology/primary care follow up outpatient 3. Hypertension: bp high -medical management 4. Diabetes mellitus: Hemoglobin A1c -blood sugar optimization 5. Acute kidney injury, resolved 6. Electrolyte imbalance: improving -optimize lytes; replete and monitor 7. BPH: on Flomax 8. Bacteruria: -encourage frequent bladder emptying 9. Hypocalcemia: -replete and monitor Thank you. Patient seen and examined in collaboration with Dr. Riley Emery. Problems: Subjective 24 Hr Interval Summary Feeling well. Improved pain from wound. Pending possible discharge today. No fevers, chills, sob, cp, palpitations, n/v/d/dysuria, excessive wound drainage, paresthesias or myalgias. . Exam/Review of Systems Vital Signs Vitals Vital Signs Date Time Temp Pulse Resp B/P Pulse Ox O2 Delivery O2 Flow Rate FiO2 02/02/17 07:57 97.7 68 18 156/74 95 01/29/17 21:40 Room Air Nasal Cannula 01/29/17 19:40 2.0 Intake and Output 02/01/17 02/01/17 02/02/17 15:00 23:00 07:00 Intake Total 650 ml 1330 ml 1315 ml Balance 650 ml 1330 ml 1315 ml Exam Free Text/Dictation Constitutional: alert, oriented Psych: nl mood/affect, no complaints Head: atraumatic, normocephalic Eyes: nl conjunctiva, nl lids, nl sclera ENMT: mucosa pink and moist, nl lips & teeth Neck: non-tender, supple Respiratory: clear to auscultation, normal air movement Cardiovascular: nl pulses, regular rate and rhythm Gastrointestinal: non-tender, soft Musculoskeletal: nl extremities to inspection, nl gait and stance Extremities: normal pulses Neurological: nl mental status, nl speech, nl strength Skin: nl turgor, other (right thigh packed with improved drainage; periwound erythema improved ) Lymph: nl lymph nodes Results Result Diagram: 02/02/17 0304 02/02/17 0304 DARCY KOHLI NP Feb 02, 2017 08:40
[2017-02-02] MEDS ORDERED: POTASSIUM PHOSPHATE 30 MM in SOD CHLORIDE 0.9% 250 ML IVPB ONE (09:00)
--- NOTE | 2017-02-02 11:58 | PN ---
Date/Time of Note Date/Time of Note DATE: 02/02/17 TIME: 11:54 Assessment/Plan VTE Prophylaxis VTE Prophylaxis Intervention: SCD's Lines/Catheters IV Catheter Type (from Nrsg): PICC Line Central line still needed: Yes (For IV antibiotics outpatient) Assessment/Plan Assessment/Plan 61-year-old male with: 1. Right thigh postop wound infection with abscess, s/p I&D of abscess POD#2. Wound cx with MRSA today, on isolation contact, appreciate recommendations from infectious disease, final recommendation will be vancomycin and rifampin for 10 more days to complete of 14 day course. PICC line has been placed, home health arrangements will be made to start tomorrow. Patient to be discharged home today after vancomycin dose this afternoon. 2. Squamous cells carcinoma right thigh lesion, status post excision with a 5 cm margin according to patient. Follow-up with dermatology as an outpatient post discharge 3. Hypertension: Outpatient medications 4. Diabetes mellitus: Hemoglobin A1c continue metformin, sliding scale insulin , ADA diet. 5. Acute kidney injury, resolved, will D/c IVF 6. Hypokalemia, hypomagnesemia, repleting magnesium followed by potassium repletion again today. We will give additional K and mag today prior to discharge later this evening. 7. BPH: Continue Flomax Prophylaxis: Protonix for GI prophylaxis, Lovenox for DVT prophylaxis Disposition: Discharge home today with home health RN for wound care, home health for IV antibiotics and follow-up with Dr. Emery next week on . Subjective 24 Hr Interval Summary Free Text/Dictation Patient doing well, wound care is being provided surgical assistance, patient is okay to discharge home today with wound care at home by wound care nurse. Appreciate infectious disease recommendation, for final recommendation will discharge patient on vancomycin along with rifampin for synergy. PICC line has been placed yesterday. Exam/Review of Systems Vital Signs Vitals Vital Signs Date Time Temp Pulse Resp B/P Pulse Ox O2 Delivery O2 Flow Rate FiO2 02/02/17 07:57 97.7 68 18 156/74 95 01/29/17 21:40 Room Air Nasal Cannula 01/29/17 19:40 2.0 Intake and Output 02/01/17 02/01/17 02/02/17 15:00 23:00 07:00 Intake Total 650 ml 1330 ml 1315 ml Balance 650 ml 1330 ml 1315 ml Exam Constitutional: alert, oriented, well developed Respiratory: clear to auscultation, normal air movement Cardiovascular: nl pulses, regular rate and rhythm Gastrointestinal: non-tender, soft Musculoskeletal: nl extremities to inspection Extremities: normal pulses, other (No edema, clubbing or cyanosis) Neurological: TUB CHUCKER II-XII intact, nl mental status, nl speech, nl strength Results Result Diagram: 02/02/17 0304 02/02/17 0304 Results 24 hrs Laboratory Tests Test 02/01/17 12:05 02/01/17 13:21 02/01/17 17:19 02/01/17 21:10 Bedside Glucose 105 106 103 Potassium Level 3.7 Test 02/02/17 03:04 02/02/17 08:08 White Blood Count 7.3 Red Blood Count 4.33 L Hemoglobin 12.3 L Hematocrit 36.6 L Mean Corpuscular Volume 84.5 Mean Corpuscular Hemoglobin 28.4 L Mean Corpuscular Hemoglobin Concent 33.6 Red Cell Distribution Width 14.6 H Platelet Count 196 Mean Platelet Volume 12.0 H Neutrophils % 62.6 Lymphocytes % 27.7 Monocytes % 6.8 Eosinophils % 1.2 Basophils % 0.5 Nucleated Red Blood Cells % 0.0 Neutrophils # (Manual) 4.6 Lymphocytes # 2.0 Monocytes # 0.5 Eosinophils # 0.1 Basophils # 0.0 Nucleated Red Blood Cells # 0.0 Sodium Level 141 Potassium Level 3.4 L Chloride Level 103 Carbon Dioxide Level 29 Anion Gap 12 Blood Urea Nitrogen 13 Creatinine 0.85 Glucose Level 115 Calcium Level 8.2 L Phosphorus Level 2.0 L Magnesium Level 1.8 Vancomycin Level Trough 6.5 L Bedside Glucose 104 Medications Medications Current Medications Losartan Potassium (Cozaar) 100 mg DAILY PO Last administered on 02/02/17 08:10 ; Admin Dose 100 MG; Start 01/30/17 at 09:00 Metoprolol Succinate (Toprol Xl) 100 mg DAILY PO Last administered on 02/02/17 08:10; Admin Dose 100 MG; Start 01/30/17 at 09:00 Tamsulosin HCl (Flomax) 0.4 mg HS PO Last administered on 02/01/17 20:45; Admin Dose 0.4 MG; Start 01/30/17 at 21:00 Amlodipine Besylate (Norvasc) 10 mg QHS PO Last administered on 02/01/17 20:45 ; Admin Dose 10 MG; Start 01/30/17 at 21:00 Miscellaneous Information 150 mg QFridays .ROUTE ; Start 01/30/17 at 00:30; Status UNV Atorvastatin Calcium (Lipitor) 40 mg QHS PO Last administered on 02/01/17 20:45 ; Admin Dose 40 MG; Start 01/30/17 at 21:00 Pantoprazole (Protonix Tab) 40 mg DAILY@06 PO Last administered on 02/02/17 05: 09; Admin Dose 40 MG; Start 01/30/17 at 06:00 Diagnostic Test (Pha) (Accu-Chek) 1 ea 02 XX ; Start 01/31/17 at 02:00 Miscellaneous Information 1 ea NOTE XX ; Start 01/30/17 at 11:00 Glucose (Glutose) 15 gm Q15M PRN PO DECREASED GLUCOSE; Start 01/30/17 at 11:00 Glucose (Glutose) 22.5 gm Q15M PRN PO DECREASED GLUCOSE; Start 01/30/17 at 11:00 Dextrose (D50w Syringe) 25 ml Q15M PRN IV DECREASED GLUCOSE; Start 01/30/17 at 11:00 Dextrose (D50w Syringe) 50 ml Q15M PRN IV DECREASED GLUCOSE; Start 01/30/17 at 11:00 Glucagon (Glucagen) 1 mg Q15M PRN IM DECREASED GLUCOSE; Start 01/30/17 at 11:00 Glucose (Glutose) 15 gm Q15M PRN BUCCAL DECREASED GLUCOSE; Start 01/30/17 at 11: 00 Enoxaparin Sodium (Lovenox) 40 mg DAILY SC Last administered on 02/02/17 08:11 ; Admin Dose 40 MG; Start 01/30/17 at 12:00 Miscellaneous Information (*Order Clarification Bulletin) ([trulicify] 150 MG: PLEASE ASK FAMILY... Q8H XX ; Start 01/30/17 at 12:30 Acetaminophen/ Hydrocodone Bitart (Dickinson (5/325)) 1 tab Q4H PRN PO PAIN Last administered on 02/01/17 21:06; Admin Dose 1 TAB; Start 01/31/17 at 04:30 Acetaminophen/ Hydrocodone Bitart (Dickinson (5/325)) 2 tab Q4H PRN PO PAIN Last administered on 01/31/17 04:12; Admin Dose 2 TAB; Start 01/31/17 at 04:30 Sodium Hypochlorite (Dakin'S (Dilute 1/40%)) 1 applic DAILY IRR Last administered on 02/01/17 09:40; Admin Dose 1 APPLIC; Start 01/31/17 at 13:00 Rifampin (Rifampin) 600 mg DAILY PO Last administered on 02/02/17 08:09; Admin Dose 600 MG; Start 02/01/17 at 18:00 IV Flush 10 ml 10 ml PRN PRN IV IV PROTOCOL; Start 02/01/17 at 19:00 Potassium Phosphate 30 mm/ Sodium Chloride 260 ml @ 65 mls/hr ONCE ONCE IVPB Last administered on 02/02/17 11:30; Admin Dose 65 MLS/HR; Start 02/02/17 at 09: 00; Stop 02/02/17 at 12:59 Vancomycin HCl/ Sodium Chloride (Vancocin/NS) 250 ml @ 83.333 mls/ hr Q12H IVPB ; Start 02/02/17 at 17:00 ERICKSON QUEVEDO Feb 02, 2017 11:58
--- NOTE | 2017-02-02 12:00 | PDOCDIS ---
Discharge Instructions CONDITION Patient Condition: Stable HOME CARE INSTRUCTIONS: Special Diet: carb controlled ACTIVITY: Activity Restrictions: No Restrictions FOLLOW UP/APPOINTMENTS Follow-up Plan Follow-up with primary care physician within 1 week Follow-up with Dr. Riley Emery next week, patient to call his office and make an appointment for , February 08 Follow-up with home health for IV antibiotics and RN for wound care Please include wound care instructions from Dr. Emery to the discharge paperwork for patient to take home. ERICKSON QUEVEDO Feb 02, 2017 12:00
[2017-02-02] MEDS ORDERED: RIFA300C3 PO (12:03)
[2017-02-02] MEDS ORDERED: HYDR-3498 PO (12:03)
[2017-02-02] MEDS ORDERED: VANC1.5P10 IV (12:03)
[2017-02-02] MEDS: SODIUM HYPOCHLORITE 1/40% 1L IRRIG IRR SCH (15:13)
[2017-02-02 15:41] VITALS: BP 157/79; RESP 18
[2017-02-02] MEDS ORDERED: VANCOMYCIN 2 GM in SOD CHLORIDE 0.9% 500 ML IVPB SCH (16:00)
[2017-02-02] MEDS ORDERED: VANCOMYCIN 1.5 GM in SOD CHLORIDE 0.9% 250 ML IVPB SCH (17:00)
--- NOTE | 2017-02-02 17:05 | DS ---
Date/Time of Note Date/Time of Note DATE: 02/02/17 TIME: 16:56 Discharge Summary Admission/Discharge Info Admit Date/Time Jan 29, 2017 at 20:34 Discharge Date/Time February 02, 2017 Discharge Diagnosis Right buttock postop cellulitis with abscess status post I&D with MRSA Diabetes Mellitus Hypertension Hyperlipidemia BPH Patient Condition: Stable Consults Infectious disease, Dr. Chapman/Dr Jolly General surgery, Dr. Riley Emery Procedures Status post incision and drainage of right buttock abscess Status post PICC line placement Hx of Present Illness Chief complaint: Right thigh postop infection History of presenting illness: This is a 61-year-old male with history of hypertension, diabetes mellitus, recent excision of right thigh squamous cell carcinomatous lesion approximately 6 days ago who presented with complaints of fevers, chills, discharge from the postop wound. Patient reports that he had an excisional biopsy or excision of right thigh squamous cell carcinomatous lesion by a fish hatchery inspector 6 days ago, 48 hours postprocedure he started having worsening pain at the surgical site. By the third day he noticed a mixture of pus and blood draining from the surgical wound , stitches are still in place, he also noted increasing erythema. He called his primary care physician was started on Keflex. He took 3 doses of the Keflex and by yesterday morning he was having fevers and chills at home, therefore he came to the hospital. He is doing better this morning, no fevers or chills. White blood cell count is within normal. Surgical wound is erythematous with stitches in place and also induration noted. There is no charges that I am seeing but the patient again reports a mixture of purulent and serosanguineous discharge 2 days ago. He has been started on Zosyn and vancomycin. Wound care has been ordered. Wound culture pending, CAT scan of the right thigh also is pending to rule out abscess. Surgical consult as needed. Hospital Course Patient was admitted to a medical surgical bed, neurosurgery, Dr. Riley Emery was consulted after the CAT scan of his right thigh/right buttock did show cellulitis with a large fluid collection likely abscess. Dr. Emery did I &D the postop wound and found out that patient had a lot of purulent drainage coming out. The wound was packed, wound care is ongoing, patient has been on IV vancomycin and Zosyn on admission. Wound cultures came back with MRSA, infectious disease was consulted, patient is to remain on vancomycin for total of 14 days along with rifampin for synergy per infectious disease. PICC line was placed yesterday, patient will be discharged today on vancomycin 1.5 g IV every 12 hours for 10 more days along with Rifampin 600 mg p.o. day for 10 days. Home health has been arranged for IV antibiotics and also wound care. Patient is to follow-up with Dr. Emery next week. During this admission, patient was also noted to be significantly hypokalemic and persistently so, he did require multiple doses of potassium oral and IV, he also has been supplemented with phosphorus and magnesium, now electrolytes are stable. Renal function is within normal. Home Meds Active Scripts Vancomycin/0.9 % Sod Chloride (Vanco 1.5 gm/250 ml-0.9% NaCl) 1.5 Gm/250 Ml Plast..bag, 1.5 GM IV Q12 for 10 Days Prov:ERICKSON QUEVEDO 02/02/17 Rifampin* (Rifampin*) 300 Mg Capsule, 600 MG PO DAILY for 10 Days, CAP Prov:ERICKSON QUEVEDO 02/02/17 Hydrocodone Bit-Acetaminophen (Hydrocodone Bit-APAP) 5-325MG Tablet, 2 TAB PO Q4H Y for PAIN for 60 Days, TAB Prov:EMYERICKSON 02/02/17 Reported Medications Tamsulosin Hcl* (Tamsulosin Hcl*) 0.4 Mg Cap.er.24h, 0.4 MG PO HS, CAP 01/29/17 Hydrochlorothiazide (Hydrochlorothiazide) 25 Mg Tablet, 25 MG PO DAILY, #30 TAB 01/29/17 Metoprolol Succinate* (Toprol XL*) 100 Mg Tab.sr.24h, 100 MG PO DAILY for ELEVATED BLOOD PRESSURE, #30 TAB 01/29/17 Losartan Potassium* (Losartan Potassium*) 100 Mg Tablet, 100 MG PO DAILY for ELEVATED BLOOD PRESSURE, TAB 01/29/17 Metformin Hcl* (Metformin Hcl*) 1,000 Mg Tablet, 1000 MG PO WITH BREAKFAST DINNE for diabetes, #30 TAB 01/29/17 [trulicify] No Conflict Check, 150 MG QFridays 01/29/17 Amlodipine-Atorvastatin (Amlodipine-Atorvastatin) 10-40 Mg Tablet, 1 TAB PO QHS , #90 11/22/16 Discontinued Scripts Dextran/Hypromellose/Glycerin (Tears Naturale Forte Drops) 30 Ml Drops, 30 ML OP QID for 7 Days, BOTTLE Prov:KALIE PALENCIA DO 11/22/16 Prednisone* (Prednisone*) 20 Mg Tab, 60 MG PO DAILY for 4 Days, TAB Prov:KALIE PALENCIA 11/22/16 Valacyclovir HCl (Valtrex) 1,000 Mg Tablet, 1000 MG PO TID for 7 Days, TAB Prov:KALIE PALENCIA DO 11/22/16 Follow-up Plan Follow-up with primary care physician within 1 week Follow-up with Dr. Riley Emery next 02/08/2017, patient needs to call the office on Sunday for his appointment. Follow-up with home health services for IV antibiotics and wound care and also for PICC line care Primary Care Provider Not On Staff Doctor Time spent on discharge: > 30 minutes Pending Labs Laboratory Tests Test 02/01/17 17:19 02/01/17 21:10 02/02/17 03:04 02/02/17 08:08 Bedside Glucose 106mg/dL (70-220) 103mg/dL (70-220) 104mg/dL (70-220) White Blood Count 7.310^3/ul (4.8-10.8) Red Blood Count 4.3310^6/ul (4.70-6.10) Hemoglobin 12.3g/dl (14.0-18.0) Hematocrit 36.6% (42.0-52.0) Mean Corpuscular Volume 84.5fl (82.0-101.0) Mean Corpuscular Hemoglobin 28.4pg (29.0-33.0) Mean Corpuscular Hemoglobin Concent 33.6g/dl (32.0-37.0) Red Cell Distribution Width 14.6% (11.5-14.5) Platelet Count 91897^3/UL (140-415) Mean Platelet Volume 12.0fl (7.4-10.4) Neutrophils % 62.6% (39.0-77.0) Lymphocytes % 27.7% (15.0-51.0) Monocytes % 6.8% (0.0-11.0) Eosinophils % 1.2% (0.0-7.0) Basophils % 0.5% (0.0-2.0) Nucleated Red Blood Cells % 0.0/100WBC (0.0-0.0) Neutrophils # (Manual) 4.610^3/ul (1.7-7.5) Lymphocytes # 2.010^3/ul (0.8-2.9) Monocytes # 0.510^3/ul (0.3-0.9) Eosinophils # 0.110^3/ul (0.0-0.5) Basophils # 0.010^3/ul (0.0-0.1) Nucleated Red Blood Cells # 0.010^3/ul (0.0-0.0) Sodium Level 141mmol/L (135-144) Potassium Level 3.4mmol/L (3.5-5.1) Chloride Level 103mmol/L (97-110) Carbon Dioxide Level 29mmol/L (21-31) Anion Gap 12 (8-16) Blood Urea Nitrogen 13mg/dl (7-20) Creatinine 0.85mg/dl (0.61-1.24) Glucose Level 115mg/dl (70-220) Calcium Level 8.2mg/dl (8.4-10.2) Phosphorus Level 2.0mg/dl (2.5-4.9) Magnesium Level 1.8mg/dl (1.7-2.5) Vancomycin Level Trough 6.5ug/ml (10.0-20.0) Test 02/02/17 11:54 Bedside Glucose 126mg/dL (70-220) ERICKSON QUEVEDO Feb 02, 2017 17:05
--- NOTE | 2017-02-02 22:53 | PN ---
DATE: 02/02/2017 SUBJECTIVE DATA: No acute changes. Patient is alert, feels good, looks comfortable, denies pain. No fevers. WBC 7.3, no shift, no bands. BUN 13, creatinine 0.85. MICROBIOLOGY: Wound culture growing MRSA. Indwelling PICC line. PHYSICAL EXAMINATION: GENERAL: Obese, well-developed, elderly [place]-speaking man who is in no distress. HEENT: Head atraumatic, normocephalic. Sclerae anicteric. Buccal mucosa pink. NECK: Supple. CHEST: Rise symmetrical. Breath sounds clear. HEART: S1, S2. ABDOMEN: Soft, bowel sounds present. EXTREMITIES: Right thigh dressing intact. ASSESSMENT: 1. Right thigh methicillin resistant Staphylococcus aureus abscess, status post incision and drainage. 2. Squamous cell carcinoma of right thigh, status post excision. 3. Diabetes. 4. Hypertension. 5. Obesity. PLAN: Patient remains stable. PICC line placed. Anticipate discharge home on IV vancomycin, oral Bactrim and oral rifampin for two weeks. Follow with primary physician. May follow with Dr. Jolly in the office p.r.n. Dictated By: Cora Downing NP /zaheer/jeovany /Document#: [id number]
== END 2017-02-02 19:56 | disposition home health service (06) | DRG 857 ==
LOC: E/R 17:02 → PP2 20:34
PROVIDERS: ADMIT Internal Medicine; ATTEND Internal Medicine
PROC: 0JB70ZZ Excision of Back Subcutaneous Tissue and Fascia, Open Approach (ICD-10-PCS; principal; 2017-01-29)
PROC: 02HV33Z Insertion of Infusion Device into Superior Vena Cava, Percutaneous Approach (ICD-10-PCS; 2017-02-01)
PROC: B548ZZA Ultrasonography of Superior Vena Cava, Guidance (ICD-10-PCS; 2017-02-01)
DX: T81.4XXA Infection following a procedure, initial encounter (principal); N17.9 Acute kidney failure, unspecified; C76.51 Malignant neoplasm of right lower limb; E83.42 Hypomagnesemia; E83.51 Hypocalcemia; L02.31 Cutaneous abscess of buttock; I10 Essential (primary) hypertension; L03.317 Cellulitis of buttock; E11.9 Type 2 diabetes mellitus without complications; B95.62 Methicillin resistant Staphylococcus aureus infection as the cause of diseases classified elsewhere; Y83.8 Other surgical procedures as the cause of abnormal reaction of the patient, or of later complication, without mention of misadventure at the time of the procedure; N40.0 Benign prostatic hyperplasia without lower urinary tract symptoms; Z87.891 Personal history of nicotine dependence; E87.6 Hypokalemia; E66.9 Obesity, unspecified; Z68.35 Body mass index [BMI] 35.0-35.9, adult; R82.71 Bacteriuria
CPT/HCPCS: 36415; 36569; 71010; 73700; 76937; 80048; 80053; 80202; 81001; 82962; 83036; 83605; 83690; 83735; 84100; 84132; 84484; 85025; 85610; 85730; 87040; 87070; 87081; 87086; 93005; 96374; 96375; C1769; J1650; J1815; J2543; J3370; J3475; J3480; J7030; J7040; J7050; J7060; Q9967

== ENCOUNTER 2017-11-27 10:29 | Inpatient (IN) | END 2017-11-27 12:37 | disposition home or self-care (01) | DRG 641 ==